=== PATIENT | male | born 1940 | race Two or more races ===

== ENCOUNTER 2017-07-13 09:14 | Inpatient (IN) | payer MEDICARE, MEDICAID ==
[~2017-07-13] VITALS: Ht 170.2 cm; Wt 81.6 kg
[~2017-07-13 09:14] MED LIST: ACETAMINOPHEN120 MG ORAL; ALBUTEROL2.5 MG/3 M INH; ATIVAN0.5 MG ORAL; BENADRYL25 M3 PO; D5NS; DEPAKOTE ER500 MG ORAL; FOLIC ACID1 MG ORAL; LACTULOSE20 GM/301 ORAL; MAG-OX 400400 MG ORAL; MORPHINE SU4 MG/1 ML IV; MYLANTA30 M1 PO; NAMENDA5 MG ORAL; NEOMYCIN SULFA500 MG ORAL; NEPHRO-VITE RX1 EAC1 PO; NITROGLYCERIN0.4 MG SL; POLYETHYLENE GL17 GM ORAL; RESTORIL15 MG ORAL; TUMS200 M1 PO; TYLENOL650 MG/20. ORAL; VITAMIN D1000 UNI1 ORAL; VITAMIN D1000 UNI2 PO; XALATAN2.5 ML BOTH EYES; XIFAXAN550 MG ORAL; ZOFRAN4 M1 IV
[2017-07-13 09:21] VITALS: BP 103/64
[2017-07-13] MEDS ORDERED: MULTI VITAMIN1 EACH ORAL (09:25)
[2017-07-13] MEDS ORDERED: VITAMIN D-32000 UNI1 PO (09:25)
[2017-07-13] MEDS ORDERED: MAG-OXIDE400 M1 PO (09:25)
[2017-07-13] MEDS ORDERED: XIFAXAN550 MG ORAL (09:25)
--- NOTE | 2017-07-13 09:27 | Emergency Room Report ---
History of Present Illness General Chief Complaint: Upper Respiratory Illness Source: Patient, Medical Record, EMS Present Illness HPI 77-year-old male coming from [facility], history of COPD, hepatitis C, cirrhosis, CAD, hypertension, seizure, encephalopathy, dementia, unknown baseline mental status, presenting with cough and fever for 2 days. Also shortness of breath. Patient is very poor historian, not able to give much history Allergies: Coded Allergies: No Known Allergies (Unverified , 07/19/16) Patient History Past Medical History: see triage record Past Surgical History: unable to obtain Pertinent Family History: unable to obtain Reviewed Nursing Documentation: PMH: Agreed, PSxH: Agreed Nursing Documentation-PMH Hx Cardiac Problems: Yes Hx Hypertension: Yes Hx Pacemaker: No - ANEMIA Hx COPD: Yes Hx Cancer: No Hx Gastrointestinal Problems: Yes Hx Dialysis: No - advanced liver disease,encephalopathy pepic ulcer disease Hx Neurological Problems: Yes Hx Encephalitis: Yes - encephalopathy Hx Seizures: Yes Review of Systems All Other Systems: negative except mentioned in HPI Physical Exam Vital Signs Date Time Temp Pulse Resp B/P (MAP) Pulse Ox O2 Delivery O2 Flow Rate FiO2 07/13/17 09:14 98.2 94 20 117/75 98 Nasal Cannula 2.0 Medical Decision Making Diagnostic Impression: Primary Impression: HCAP (healthcare-associated pneumonia) Additional Impression: Hypokalemia ER Course 77-year-old male coming from prison with pmhx of COPD, CAD, cirrhosis, hypertension p/w SOB and cough for 2 days. DDX: pneumonia versus COPD exacerbation, ACS Plan: IV access, cardiac catheterization technologist, O2 nasal cannula, EKG, CXR obtain basic labs including blood gas, troponin ER course: Labs: leukocytosis Satting 94-100 on RA Continues to be in mild/moderate respiratory distress. IV fluids given to patient, antibiotics administered Disposition: Patient is to be admitted to med-surg unit. Patient requires inpatient admission for pneumonia Utilizing CURB65 clinical criteria, patient has increased mortality from pneumonia requiring hospitalization. Patient requires close monitoring of respiratory status and antibiotics D/w hospitalist Dr Coburn who has accepted pt for admission EKG Diagnostic Results EP Interpretation: Yes Rate: normal Rhythm: NSR ST Segments: RBBB ASA given to patient: No Rhythm Strip EP Interpretation: Yes Rate: 93 Rhythm: NSR, no PVCs, no ectopy Chest X-ray CXR: Ordered: Yes 1 view Indication: SOB EP interpretation: Yes Interpretation: +Infiltrate RML, possible LLL cannot clearly eval LL base Impression:R sided pneumonia Electronically signed by Ivonne Hernandez MD Laboratory Tests Test 07/13/17 11:05 07/13/17 11:54 White Blood Count 11.0 K/UL (4.8-10.8) H Red Blood Count 3.27 M/UL (4.70-6.10) L Hemoglobin 10.7 G/DL (14.2-18.0) L Hematocrit 31.6 % (42.0-52.0) L Mean Corpuscular Volume 97 FL (80-99) Mean Corpuscular Hemoglobin 32.7 PG (27.0-31.0) H Mean Corpuscular Hemoglobin Concent 33.8 G/DL (32.0-36.0) Red Cell Distribution Width 15.0 % (11.6-14.8) H Platelet Count 207 K/UL (150-450) Mean Platelet Volume 8.7 FL (6.5-10.1) Neutrophils (%) (Auto) 60.5 % (45.0-75.0) Lymphocytes (%) (Auto) 23.4 % (20.0-45.0) Monocytes (%) (Auto) 14.9 % (1.0-10.0) H Eosinophils (%) (Auto) 0.0 % (0.0-3.0) Basophils (%) (Auto) 1.1 % (0.0-2.0) Sodium Level 130 MMOL/L (136-145) L Potassium Level 3.1 MMOL/L (3.5-5.1) L Chloride Level 97 MMOL/L (98-107) L Carbon Dioxide Level 27 MMOL/L (21-32) Anion Gap 6 (5-15) Blood Urea Nitrogen 22 mg/dL (7-18) H Creatinine 0.8 MG/DL (0.55-1.30) Estimate Glomerular Filtration Rate mL/min (>60) Glucose Level 91 MG/DL (74-106) Lactic Acid Level 1.90 mmol/L (0.66-2.22) Calcium Level 8.6 MG/DL (8.5-10.1) Total Bilirubin 0.4 MG/DL (0.2-1.0) Aspartate Amino Transferase (AST) 20 U/L (15-37) Alanine Aminotransferase (ALT) 6 U/L (12-78) L Alkaline Phosphatase 52 U/L (46-116) Total Creatine Kinase 193 U/L (26-308) Creatine Kinase MB 5.6 NG/ML (0.0-3.6) H Creatine Kinase MB Relative Index 2.9 Troponin I 0.000 ng/mL (0.000-0.056) Total Protein 6.6 G/DL (6.4-8.2) Albumin 2.0 G/DL (3.4-5.0) L Globulin 4.6 g/dL Albumin/Globulin Ratio 0.4 (1.0-2.7) L Last Vital Signs Date Time Temp Pulse Resp B/P (MAP) Pulse Ox O2 Delivery O2 Flow Rate FiO2 07/13/17 09:14 98.2 94 20 117/75 98 Nasal Cannula 2.0 Disposition: ADMITTED INPATIENT Condition: Serious RetinoIvonne M.D. Jul 13, 2017 09:27
[2017-07-13 10:30] VITALS: BP 114/60
[2017-07-13] MEDS ORDERED: Miralax 17gm pkt ORAL PRN ×2 (11:15)
[2017-07-13] MEDS ORDERED: Albuterol/Ipratropium 3ml neb HHN PRN (11:15)
[2017-07-13] MEDS ORDERED: Morphine Sulfate 4mg/ml Inj IVP PRN (11:15)
[2017-07-13 11:24] LABS: BASOPHILS % (AUTO) 1.1 % (0.0-2.0); LYMPHOCYTES % (AUTO) 23.4 % (20.0-45.0); MEAN CORPUSCULAR HEMOGLOBIN 32.7 PG (27.0-31.0); MEAN CORPUSCULAR HGB CONC 33.8 G/DL (32.0-36.0); MEAN CORPUSCULAR VOLUME 97 FL (80-99); MEAN PLATELET VOLUME 8.7 FL (6.5-10.1); MONOCYTES % (AUTO) 14.9 % (1.0-10.0); NEUTROPHILS % (AUTO) 60.5 % (45.0-75.0); PLATELET COUNT 207 K/UL (150-450); RED BLOOD COUNT 3.27 M/UL (4.70-6.10)
[2017-07-13 11:30] VITALS: BP 110/62
[2017-07-13] MEDS ORDERED: Cefepime 1gm vial IM ONE (11:30)
--- NOTE | 2017-07-13 11:43 | Diagnostic Imaging Report ---
Indication: Dyspnea Comparison: None A single view chest radiograph was obtained. Findings: Interstitial opacities noted throughout the lungs bilaterally but predominating at the lung bases probably largely accounted for by atelectasis given low lung volumes. Heart size is normal. Aorta is ectatic. Bones are osteopenic. Impression: Basilar atelectasis suspected.
[2017-07-13] MEDS ORDERED: Cefepime HCl 1 GM in NS 55 ML IVPB ONE (12:05)
[2017-07-13] MEDS: Vancomycin 1.5gm/D5W 250ml 250 ML IVPB ONE ×2 (12:09→12:54)
[2017-07-13 12:30] VITALS: BP 112/65
--- NOTE | 2017-07-13 12:33 | Infectious Diseases Prog Note ---
Assessment/Plan Problems: (1) HCAP (healthcare-associated pneumonia) Assessment & Plan: will send sputum culture, and screening for influenza , continue vancomycin and cefepime (2) Sepsis Assessment & Plan: due to the above, continue wide spectrum antibiotics pending blood culture (3) Cirrhosis Assessment & Plan: supportive care , GI consult Subjective Allergies: Coded Allergies: No Known Allergies (Unverified , 07/19/16) Objective Vital Signs Last 24 Hour Vital Signs Date Time Temp Pulse Resp B/P (MAP) Pulse Ox O2 Delivery O2 Flow Rate FiO2 07/13/17 09:21 100.0 87 15 103/64 94 Room Air 07/13/17 09:20 87 15 07/13/17 09:14 98.2 94 20 117/75 98 Nasal Cannula 2.0 Height (Feet): 5 Height (Inches): 7.00 Weight (Pounds): 180 Laboratory Tests Test 07/13/17 11:05 07/13/17 11:54 White Blood Count 11.0 K/UL (4.8-10.8) H Red Blood Count 3.27 M/UL (4.70-6.10) L Hemoglobin 10.7 G/DL (14.2-18.0) L Hematocrit 31.6 % (42.0-52.0) L Mean Corpuscular Volume 97 FL (80-99) Mean Corpuscular Hemoglobin 32.7 PG (27.0-31.0) H Mean Corpuscular Hemoglobin Concent 33.8 G/DL (32.0-36.0) Red Cell Distribution Width 15.0 % (11.6-14.8) H Platelet Count 207 K/UL (150-450) Mean Platelet Volume 8.7 FL (6.5-10.1) Neutrophils (%) (Auto) 60.5 % (45.0-75.0) Lymphocytes (%) (Auto) 23.4 % (20.0-45.0) Monocytes (%) (Auto) 14.9 % (1.0-10.0) H Eosinophils (%) (Auto) 0.0 % (0.0-3.0) Basophils (%) (Auto) 1.1 % (0.0-2.0) Sodium Level Pending Potassium Level Pending Chloride Level Pending Carbon Dioxide Level Pending Blood Urea Nitrogen Pending Creatinine Pending Estimat Glomerular Filtration Rate Pending Glucose Level Pending Lactic Acid Level Pending Calcium Level Pending Total Bilirubin Pending Aspartate Amino Transf (AST/SGOT) Pending Alanine Aminotransferase (ALT/SGPT) Pending Alkaline Phosphatase Pending Total Creatine Kinase Pending Creatine Kinase MB Pending Troponin I Pending Total Protein Pending Albumin Pending Globulin Pending Current Medications Medications (Trade) Dose Ordered Sig/Zuhair Route PRN Reason Start Time Stop Time Status Last Admin Dose Admin Acetaminophen (Tylenol) 650 mg Q4H PRN ORAL T>100.5 F 07/13/17 11:15 08/12/17 11:14 Albuterol/ Ipratropium (DuoNeb 0.5-3(2.5)mg/3ml) 3 ml Q4H PRN HHN Shortness of Breath 07/13/17 11:15 07/18/17 11:14 Cefepime HCl 1 gm/ Sodium Chloride 55 ml @ 110 mls/hr ONCE ONCE IVPB 07/13/17 12:05 07/13/17 12:34 07/13/17 12:12 Cefepime HCl 2 gm/ Dextrose 110 ml @ 220 mls/hr EVERY 12 HOURS IV 07/13/17 21:00 07/20/17 20:59 UNV Dextrose (Dextrose 50%) STAT PRN IV Hypoglycemia 07/13/17 11:15 08/12/17 11:14 Divalproex Sodium (Depakote ER) 500 mg TID ORAL 07/13/17 13:00 08/12/17 12:59 UNV Heparin Sodium (Porcine) (Heparin 5000 units/ml) 5,000 units EVERY 12 HOURS SUBQ 07/13/17 21:00 08/12/17 20:59 Memantine (Namenda) 5 mg TWICE A DAY ORAL 07/13/17 18:00 08/12/17 17:59 Morphine Sulfate (Morphine Sulfate) 2 mg Q4H PRN IVP Severe Pain (Pain Scale 7-10) 07/13/17 11:15 07/20/17 11:14 Ondansetron HCl (Zofran) 4 mg Q6H PRN IVP Nausea & Vomiting 07/13/17 11:15 08/12/17 11:14 Polyethylene Glycol (Miralax) 17 gm DAILYPRN PRN ORAL Constipation 07/13/17 11:15 08/12/17 11:14 Rifaximin (Xifaxan) 550 mg Q12HR ORAL 07/13/17 21:00 07/20/17 20:59 Sodium Chloride 2,400 ml @ 2,400 mls/hr Q1H ONCE IVLG 07/13/17 11:30 07/13/17 12:29 07/13/17 12:11 Vancomycin HCl (Vanco rx to dose) 1 ea DAILY PRN MISC PER RX PROTOCOL 07/13/17 12:00 08/12/17 11:59 Vancomycin HCl 1 gm/Dextrose 275 ml @ 183.3 mls/ hr Q24H IV 07/13/17 23:00 07/18/17 22:59 UNV Vancomycin HCl/ Dextrose 250 ml @ 125 mls/hr ONCE ONCE IVPB 07/13/17 11:30 07/13/17 13:29 Christina Combs M.D. Jul 13, 2017 12:33
[2017-07-13 14:06] LABS: ALANINE AMINOTRANSFERASE 6 U/L (12-78); ALBUMIN/GLOBULIN RATIO 0.4 (1.0-2.7); ANION GAP 6 (5-15); ASPARTATE AMINO TRANSFERASE 20 U/L (15-37); CALCIUM 8.6 MG/DL (8.5-10.1); CARBON DIOXIDE 27 MMOL/L (21-32); CHLORIDE 97 MMOL/L (98-107); CKMB 5.6 NG/ML (0.0-3.6); CREATININE 0.8 MG/DL (0.55-1.30); POTASSIUM 3.1 MMOL/L (3.5-5.1); SODIUM 130 MMOL/L (136-145); TOTAL PROTEIN 6.6 G/DL (6.4-8.2)
[2017-07-13] MEDS ORDERED: VITAMIN D400 INTLU ORAL (16:08)
[2017-07-13] MEDS: Depakote 500mg tab ORAL SCH ×2 (16:37→18:42)
[2017-07-13] MEDS ORDERED: Memantine 5 MG TAB ORAL SCH (18:00)
--- NOTE | 2017-07-13 18:10 | Neurology Progress Note ---
Objective Physical Exam Last Vital Signs Date Time Temp Pulse Resp B/P (MAP) Pulse Ox O2 Delivery O2 Flow Rate FiO2 07/13/17 14:55 82 14 118/66 99 Room Air 07/13/17 12:30 99.9 2.0 Laboratory Tests Test 07/13/17 11:05 07/13/17 11:54 White Blood Count 11.0 K/UL (4.8-10.8) H Red Blood Count 3.27 M/UL (4.70-6.10) L Hemoglobin 10.7 G/DL (14.2-18.0) L Hematocrit 31.6 % (42.0-52.0) L Mean Corpuscular Volume 97 FL (80-99) Mean Corpuscular Hemoglobin 32.7 PG (27.0-31.0) H Mean Corpuscular Hemoglobin Concent 33.8 G/DL (32.0-36.0) Red Cell Distribution Width 15.0 % (11.6-14.8) H Platelet Count 207 K/UL (150-450) Mean Platelet Volume 8.7 FL (6.5-10.1) Neutrophils (%) (Auto) 60.5 % (45.0-75.0) Lymphocytes (%) (Auto) 23.4 % (20.0-45.0) Monocytes (%) (Auto) 14.9 % (1.0-10.0) H Eosinophils (%) (Auto) 0.0 % (0.0-3.0) Basophils (%) (Auto) 1.1 % (0.0-2.0) Sodium Level 130 MMOL/L (136-145) L Potassium Level 3.1 MMOL/L (3.5-5.1) L Chloride Level 97 MMOL/L (98-107) L Carbon Dioxide Level 27 MMOL/L (21-32) Anion Gap 6 (5-15) Blood Urea Nitrogen 22 mg/dL (7-18) H Creatinine 0.8 MG/DL (0.55-1.30) Estimat Glomerular Filtration Rate mL/min (>60) Glucose Level 91 MG/DL (74-106) Lactic Acid Level 1.90 mmol/L (0.66-2.22) Calcium Level 8.6 MG/DL (8.5-10.1) Total Bilirubin 0.4 MG/DL (0.2-1.0) Aspartate Amino Transf (AST/SGOT) 20 U/L (15-37) Alanine Aminotransferase (ALT/SGPT) 6 U/L (12-78) L Alkaline Phosphatase 52 U/L (46-116) Total Creatine Kinase 193 U/L (26-308) Creatine Kinase MB 5.6 NG/ML (0.0-3.6) H Creatine Kinase MB Relative Index 2.9 Troponin I 0.000 ng/mL (0.000-0.056) Total Protein 6.6 G/DL (6.4-8.2) Albumin 2.0 G/DL (3.4-5.0) L Globulin 4.6 g/dL Albumin/Globulin Ratio 0.4 (1.0-2.7) L Impression/Recommendations Problems: (1) s/o byfrontal encephalomalatia/ craniotomy (2) r/o seizure disorder (3) HCAP (healthcare-associated pneumonia) (4) Hypokalemia (5) Cirrhosis (6) GERD (gastroesophageal reflux disease) Status: unchanged Recommendations # [id number] ANGELLA GUERRA Jul 13, 2017 18:10
[2017-07-13 18:39] LABS: VALPROIC ACID 87 MCG/ML (50-100)
[2017-07-13] MEDS: D5 1/2NS 1,000 ML IV SCH (20:35)
[2017-07-13] MEDS: Piperacillin/Tazobactam 3.375 GM in D5W 110 ML IVPB SCH (20:56)
[2017-07-13 21:00] VITALS: BP 101/54
[2017-07-13] MEDS ORDERED: Cefepime HCl 2 GM in D5W 110 ML IV SCH (21:00)
[2017-07-13] MEDS: Heparin 5000 units/ml inj SUBQ SCH (21:54)
[2017-07-13] MEDS ORDERED: Vancomycin 1 GM in D5W 275 ML IV SCH (23:00)
--- NOTE | 2017-07-13 23:45 | History and Physical Report ---
DATE OF ADMISSION: 07/13/2017 TIME SEEN: 1 p.m. CONSULTANTS: 1. Chi Gibson M.D. 2. Dr. Suárez. 3. Lashanda Burris M.D. 4. Kain Haq M.D. CHIEF COMPLAINT: Shortness of breath, pneumonia, and sepsis. BRIEF HISTORY: This is a 77-year-old male from [facility], presented with increased shortness of breath and lethargy, was found to have pneumonia and sepsis, sent to [facility], confirmed the above, and he was admitted to medical floor for further treatment. Currently, calm, lethargic in bed, sleepy, and nonverbal. PAST MEDICAL HISTORY: Hepatic encephalopathy, anemia, seizure, cirrhosis, and GERD. PAST SURGICAL HISTORY: Craniotomy. MEDICATIONS: Vancomycin, rifaximin, heparin, cefepime, Namenda, Depakote, vancomycin, Zofran, and MiraLAX. ALLERGIES: Denied. SOCIAL HISTORY: Unable to obtain secondary to the patient's condition. REVIEW OF SYSTEMS: Unavailable. PHYSICAL EXAMINATION: GENERAL: Lethargic in bed and nonverbal. VITAL SIGNS: Temperature is 99 degrees, pulse 80, respirations 14, and blood pressure 112/65. CARDIOVASCULAR: No murmur. LUNGS: Poor air exchange. ABDOMEN: Bowel sounds are positive. Nontender and nondistended. EXTREMITIES: No cyanosis, clubbing, or edema. NEUROLOGIC: The patient moves all extremities. Slightly weak. LABORATORY DATA: White count is 11, hemoglobin and hematocrit 10.7 and 31, and platelets 207,000. BMP is pending. ASSESSMENT: 1. Shortness of breath. 2. Pneumonia. 3. Sepsis. 4. Anemia. 5. Hepatic encephalopathy. 6. Seizures. 7. Gastroesophageal reflux disease. 8. Cirrhosis. PLAN: 1. Continue previous medications. 2. O2 and pulmonary treatment. 3. Antibiotics per Infectious Disease. 4. OT, PT, and dietary evaluation. 5. CBC and BMP in the morning. 6. Resume home medications. 7. Dr. Gibson, Dr. Suárez, Dr. Burris, and Dr. Haq to consult. Farrukh Coburn D.O. DR: ADDISON JOB#: [id number] CC:
[2017-07-14] VITALS: BP 98/40
--- NOTE | 2017-07-14 | Consultation ---
DATE OF CONSULTATION: 07/13/2017 NOTE: INCOMPLETE DICTATION INFECTIOUS DISEASES CONSULTATION CONSULTING PHYSICIAN: Christina Combs M.D. REQUESTING PHYSICIAN: Farrukh Coburn D.O. REASON FOR CONSULTATION: Healthcare-acquired pneumonia, sepsis, and fever, recommendation for antibiotics therapy in a cirrhotic patient. HISTORY OF PRESENT ILLNESS: The patient is a 77-year-old male with past medical history of advanced liver cirrhosis disease, encephalopathy, and peptic ulcer, was sent from [facility] with DICTATION ABRUPTLY ENDED Christina Combs M.D. DR: SARAH JOB#: [id number] CC:
--- NOTE | 2017-07-14 00:15 | Consultation ---
DATE OF CONSULTATION: 07/13/2017 INFECTIOUS DISEASES CONSULTATION REQUESTING PHYSICIAN: Farrukh Coburn D.O. REASON FOR CONSULTATION: Healthcare-acquired pneumonia, sepsis, and fever in cirrhotic patient. Recommendation for antibiotics therapy. HISTORY OF PRESENT ILLNESS: The patient is a 77-year-old male with past medical history of advanced liver disease with cirrhosis, encephalopathy, and COPD, was sent from shelter facility with cough, fever, and shortness of breath. His symptom has been going on for two days. The patient was found to have fever in the emergency room and he was saturating 98% on nasal cannula. Chest x-ray in the emergency room showed bilateral basilar infiltration suspicious for pneumonia and he was started on IV antibiotics therapy empirically and I was consulted by the primary provider for antibiotics treatment and further management. As of note, this patient is poor historian with dementia cannot provide any history. History was mainly obtained from the medical record. PAST MEDICAL HISTORY: Significant for cardiac disease, hypertension, anemia, COPD, liver cirrhosis, encephalopathy, peptic ulcer disease, and seizure. PAST SURGICAL HISTORY: Unable to obtain. MEDICATIONS: The patient was started on cefepime and vancomycin by the admitting physician. For the rest of his medications, please refer to MAR. ALLERGIES: No known drug allergies. FAMILY HISTORY: Unable to obtain. SOCIAL HISTORY: He is a shelter resident. No recent drugs, tobacco, or alcohol. PHYSICAL EXAMINATION: VITAL SIGNS: Temperature 98.2, pulse 94, respirations 20, blood pressure 117/75, and saturation 98% on 2 liter nasal cannula. GENERAL: The patient is an elderly male, demented, lying in bed, alert, nonverbal, and not in distress. HEENT: Normocephalic and atraumatic. Pupils are reactive to light. Moist oral mucosa. No exudate. NECK: Supple. No lymphadenopathy. CARDIOVASCULAR: Regular rate and rhythm. No murmur. LUNGS: Diminished breathing sounds at the bases with crackles. ABDOMEN: Soft, nontender, and nondistended. Positive bowel sounds. No hepatosplenomegaly or ascites. EXTREMITIES: No edema or cyanosis. LABORATORY AND DIAGNOSTIC DATA: Labs showed white count of 11,000, hemoglobin of 10.7, and platelet count of 207,000. BUN of 6. Imaging, chest x- ray showed basilar atelectasis suspected. ASSESSMENT AND RECOMMENDATIONS: 1. Healthcare-acquired pneumonia. We will send sputum culture and screen for influenza. Continue vancomycin and switch cefepime to Zosyn. Empiric treatment to broaden his coverage since he is still spiking fever. 2. Sepsis due to the above. Continue wide-spectrum antibiotics. Pending blood culture. 3. Liver cirrhosis, chronic. Continue supportive care. Consult Gastrointestinal. 4. Chronic obstructive pulmonary disease. Continue inhaler and oxygen therapy as per drug safety associate. Thank you for the consult. Christina Combs M.D. DR: SARAH JOB#: [id number] CC: MYA
--- NOTE | 2017-07-14 00:30 | Consultation ---
DATE OF CONSULTATION: 07/13/2017 NEUROLOGICAL CONSULTATION CONSULTING PHYSICIAN: Kain Haq M.D. REQUESTING PHYSICIAN: Farrukh Coburn D.O. HISTORY OF PRESENT ILLNESS: This 77-year-old man seen in neurological consultation to evaluate the new onset of verbal unresponsiveness. The patient who is a resident of nursing facility presented with fever and cough for the last couple of days. He developed shortness of breath. The patient was unable to provide with history as he was nonverbal. The patient is known to me from previous assessment last year when he was examined revealing a limited verbal output in Belgian only. He was able to move arms and legs. He had a CT scan of the brain, which revealed a craniotomy with bifrontal extensive encephalomalacia. The patient is maintained on Depakote presumably for chronic seizure disorder. Following current admission, lab work was obtained. This revealed WBC of 11.0, anemia with hemoglobin 10.7, and hematocrit 31.6. Chemistry panel with sodium of 130, potassium 3.1, BUN of 22. CK-MB 5.6. Chest x-ray revealed bibasilar atelectasis. Infectious Disease assessment was noted. The patient was diagnosed with healthcare-associated pneumonia. His sputum culture screening for influenza was initiated. The patient was maintained on vancomycin and cefepime. The patient's vital signs were stable with fevers 100.0. He had blood pressure 119/66 and pulse oximetry 94%. PAST MEDICAL HISTORY: The patient has a history of severe head trauma, required craniotomy; history of liver cirrhosis, advanced, with evidence of encephalopathy. He has a history of peptic ulcer. He is wheelchair bound. Chronic seizure disorder diagnosed as well as dementia, gait abnormality, and history of COPD. CURRENT MEDICATIONS: His treatment prior to admission included Depakote 500 mg b.i.d., albuterol, vitamin D, Benadryl, lactulose, Ativan 0.5 mg p.r.n., magnesium oxide, Namenda, morphine, nitroglycerin, ondansetron, and Restoril. ALLERGIES: None reported. SOCIAL HISTORY: A resident of nursing facility. FAMILY HISTORY: Unavailable. REVIEW OF SYMPTOMS: Unable to obtain due to the patient's status. PHYSICAL EXAMINATION: GENERAL: A well-developed, well-nourished male, lying in bed, appears to be asleep. HEENT: Head, normocephalic with a large craniotomy defect in the mid frontal region. No otorrhea. No rhinorrhea. NECK: Supple. No meningeal signs. MUSCULOSKELETAL: Unremarkable for puffiness, both ankles. No deformities. Peripheral pulses 1+ symmetric. NEUROLOGIC: MENTAL STATUS: The patient is arousable on vigorous stimulation. He has brief eye contact. He does not follow commands given in Belgian. CRANIAL NERVE II: Pupils both responding to light and accommodation. Extraocular movement full range. CRANIAL NERVE V: Normal corneal responses. CRANIAL NERVE VII: No gross asymmetry. CRANIAL NERVE VIII: Probably decreased hearing. CRANIAL NERVES IX THROUGH XII: Tongue is in midline. MOTOR EXAMINATION: Diffuse rigidity in both upper and lower extremities, mostly pronounced in both lower extremities. Able to briefly hold arms against the gravity, but not lower extremities, which appears to be spastic and with no spontaneous activity. Deep tendon reflexes are depressed bilaterally. Plantar response is question Babinski bilaterally. SENSORY EXAMINATION: No response to pin stimulation in both upper and lower extremities. IMPRESSION: 1. 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 2. Pneumonia. 3. Verbal unresponsiveness, resulted from multiple reasons including underlying infection and metabolic derangement in the setting of severe traumatic brain injury. 4. Chronic obstructive pulmonary disease. 5. Chronic anemia. 6. Hyponatremia. 7. Hypokalemia. RECOMMENDATION: 1. Obtain Depakote level. 2. Recheck liver function tests. If abnormal, we will consider changing Depakote for other anticonvulsants due to fact that Depakote may elevate liver enzymes. 3. Observe for any paroxysmal events. 4. Continue with IV fluids and antibiotics to cover underlying infection and metabolic correction. Thank you for allowing me to see this interesting patient in neurological consultation. Kain Haq M.D. DR: NESTOR JOB#: [id number] CC:
[2017-07-14 04:00] VITALS: BP 116/68
[2017-07-14] MEDS: Piperacillin/Tazobactam 3.375 GM in D5W 110 ML IVPB SCH ×3 (05:05→21:51)
[2017-07-14 09:15] VITALS: BP 121/78
--- NOTE | 2017-07-14 10:30 | General Progress Note ---
Assessment/Plan Problem List: (1) Hepatic encephalopathy ICD Codes: K72.90 - Hepatic failure, unspecified without coma SNOMED: 97349064 (2) Anemia ICD Codes: D64.9 - Anemia, unspecified SNOMED: 417214834 (3) s/p craniotomy (4) Cirrhosis ICD Codes: K74.60 - Unspecified cirrhosis of liver SNOMED: 95450812 (5) Sepsis ICD Codes: A41.9 - Sepsis, unspecified organism SNOMED: 40353936 (6) GERD (gastroesophageal reflux disease) ICD Codes: K21.9 - Gastro-esophageal reflux disease without esophagitis SNOMED: 520223871 (7) r/o seizure disorder (8) s/o byfrontal encephalomalatia/ craniotomy (9) Hypokalemia ICD Codes: E87.6 - Hypokalemia SNOMED: 11196026 (10) HCAP (healthcare-associated pneumonia) ICD Codes: J18.9 - Pneumonia, unspecified organism SNOMED: 775247117 Status: stable, progressing, tolerating diet Assessment/Plan o2 pulm tx abx ot pt diet cbc bmp am neph eval Subjective Constitutional: Reports: weakness Respiratory: Reports: shortness of breath Allergies: Coded Allergies: No Known Allergies (Unverified , 07/19/16) All Systems: reviewed and negative except above Subjective calm in bed Objective Last 24 Hour Vital Signs Date Time Temp Pulse Resp B/P (MAP) Pulse Ox O2 Delivery O2 Flow Rate FiO2 07/14/17 09:15 97.6 56 21 121/78 96 Room Air 07/14/17 09:01 85 16 07/14/17 04:00 97.9 60 21 116/68 98 Room Air 07/14/17 00:00 97.2 64 20 98/40 100 Room Air 07/13/17 21:00 97.3 71 18 101/54 95 Room Air 71 71 07/13/17 14:55 82 14 118/66 99 Room Air 07/13/17 12:30 99.9 80 14 112/65 99 Room Air 2.0 07/13/17 11:30 99.9 88 15 110/62 97 Room Air 2.0 07/13/17 10:30 99.8 84 16 114/60 97 Room Air 2.0 Laboratory Tests 07/13/17 11:05: White Blood Count 11.0H, Red Blood Count 3.27L, Hemoglobin 10.7L, Hematocrit 31.6L, Mean Corpuscular Volume 97, Mean Corpuscular Hemoglobin 32.7H, Mean Corpuscular Hemoglobin Concent 33.8, Red Cell Distribution Width 15.0H, Platelet Count 207, Mean Platelet Volume 8.7, Neutrophils (%) (Auto) 60.5, Lymphocytes (%) (Auto) 23.4, Monocytes (%) (Auto) 14.9H, Eosinophils (%) (Auto) 0.0, Basophils (%) (Auto) 1.1 07/13/17 11:54: Sodium Level 130L, Potassium Level 3.1L, Chloride Level 97L, Carbon Dioxide Level 27, Anion Gap 6, Blood Urea Nitrogen 22H, Creatinine 0.8, Estimat Glomerular Filtration Rate , Glucose Level 91, Lactic Acid Level 1.90, Calcium Level 8.6, Total Bilirubin 0.4, Aspartate Amino Transf (AST/SGOT) 20, Alanine Aminotransferase (ALT/SGPT) 6L, Alkaline Phosphatase 52, Total Creatine Kinase 193, Creatine Kinase MB 5.6H, Creatine Kinase MB Relative Index 2.9, Troponin I 0.000, Total Protein 6.6, Albumin 2.0L, Globulin 4.6, Albumin/Globulin Ratio 0.4L, Vitamin B12 Level 852, Valproic Acid (Depakene) Level 87 Height (Feet): 5 Height (Inches): 7.00 Weight (Pounds): 180 General Appearance: lethargic EENT: normal ENT inspection Neck: normal alignment Cardiovascular: normal peripheral pulses, normal rate, regular rhythm Respiratory/Chest: chest wall non-tender, lungs clear, normal breath sounds Abdomen: normal bowel sounds, non tender, soft Extremities: normal inspection Edema: no edema noted Arm (L), no edema noted Arm (R), no edema noted Leg (L), no edema noted Leg (R), no edema noted Pedal (L), no edema noted Pedal (R), no edema noted Generalized Neurologic: motor weakness Skin: normal pigmentation, warm/dry CARLENE CASTRO Jul 14, 2017 10:30
--- NOTE | 2017-07-14 10:43 | Consultation ---
History of Present Illness General Date patient seen: Jul 14, 2017 Time patient seen: 10:00 Chief Complaint: Upper Respiratory Illness Referring physician: dr Coburn Reason for Consultation: pulmo consult Present Illness HPI 77-y/old male coming from [facility] of COPD, hepatitis C, cirrhosis, CAD, seizure disorder, encephalopathy, dementia, history of severe head trauma, requiring craniotomy, was sent for evaluation due to cough, SOB and fever for 2 days. patient was unable to provide meaningful history workup in ed revealed WBC-11 CXR with infiltrates on o2 via NC sat stable anemia -HH-10.7/31.6 K-3.1 Na-130 Depakote level therapeutic patient was admitted for further management Allergies: Coded Allergies: No Known Allergies (Unverified , 07/19/16) Medication History Scheduled Cholecalciferol (Vitamin D3) (Vitamin D), 1,000 UNIT PO DAILY, (Reported) Divalproex Sodium* (Depakote Er*), 500 MG ORAL TID, (Reported) Folic Acid* (Folic Acid*), 1 MG ORAL DAILY, (Reported) Lactulose (Lactulose*), 60 ML ORAL THREE TIMES A DAY, (Reported) Latanoprost* (Xalatan*), 1 DROP BOTH EYES BEDTIME, (Reported) Magnesium Oxide (Magnesium Oxide), 400 MG ORAL DAILY, (Reported) Magnesium Oxide (Mag-Oxide), 400 MG PO DAILY, (Reported) Memantine Hcl* (Namenda*), 5 MG ORAL TWICE A DAY, (Reported) Multivitamin (Multi Vitamin Daily), 1 TAB ORAL DAILY, (Reported) Rifaximin* (Xifaxan*), 550 MG ORAL Q12HR, (Reported) Rifaximin* (Xifaxan*), 550 MG ORAL TWICE A DAY, (Reported) Vitamin D (Vitamin D3), 1,000 UNITS ORAL DAILY, (Reported) Scheduled PRN Acetaminophen (Acetaminophen), 650 MG ORAL Q6H PRN for Prn Headache/Temp > 101, (Reported) Al Hydroxide/mg Hydroxide (Mag-Al Liquid), 30 ML PO Q6HR PRN for dyspepsia, ( Reported) Albuterol Sulfate* (Albuterol Sulfate Hhn*), 3 ML INH Q4H PRN for Shortness of Breath, (Reported) Diphenhydramine HCl (Benadryl), 25 MG PO Q4HR PRN for Itching/Pruritis, ( Reported) Lorazepam* (Ativan*), 0.5 MG ORAL Q6HR PRN for For Anxiety, (Reported) Morphine Sulfate (Morphine Sulfate), 2 MG IV Q4HR PRN for For Pain, (Reported) Nitroglycerin (Nitroglycerin), 0.4 MG SL [id number] PRN for CHEST PAIN, ( Reported) Ondansetron (Zofran), 4 MG IV Q6H PRN for Nausea & Vomiting, (Reported) Polyethylene Glycol 3350* (Polyethylene Glycol 3350*), 17 GM ORAL BEDTIME PRN for Constipation, (Reported) Temazepam* (Restoril*), 15 MG ORAL BEDTIME PRN for Insomnia, (Reported) Miscellaneous Medications Cholecalciferol (Vitamin D3) (Vitamin D-3), 1,000 UNIT PO, (Reported) [D5ns], (Reported) Patient History Healthcare decision maker Resuscitation status Full Code Advanced Directive on File Past Medical/Surgical History Past Medical/Surgical History: (1) Hepatic encephalopathy (2) Anemia (3) s/p craniotomy (4) Cirrhosis Review of Systems ROS Narrative patient is unable to provide due to chronic encephalopathy Physical Exam General Appearance: alert Lines, tubes and drains: peripheral HEENT: other - evidence of right craniotomy Respiratory/Chest: chest wall non-tender, no accessory muscle use, other - few isolated rhonchi Cardiovascular/Chest: normal peripheral pulses, normal rate, regular rhythm, no JVD Extremities: other - paraparesis Musculoskeletal: atrophy - BLE Last 24 Hour Vital Signs Date Time Temp Pulse Resp B/P (MAP) Pulse Ox O2 Delivery O2 Flow Rate FiO2 07/14/17 09:15 97.6 56 21 121/78 96 Room Air 07/14/17 09:01 85 16 07/14/17 04:00 97.9 60 21 116/68 98 Room Air 07/14/17 00:00 97.2 64 20 98/40 100 Room Air 07/13/17 21:00 97.3 71 18 101/54 95 Room Air 71 71 07/13/17 14:55 82 14 118/66 99 Room Air 07/13/17 12:30 99.9 80 14 112/65 99 Room Air 2.0 07/13/17 11:30 99.9 88 15 110/62 97 Room Air 2.0 Laboratory Tests Test 07/13/17 11:05 07/13/17 11:54 White Blood Count 11.0 K/UL (4.8-10.8) H Red Blood Count 3.27 M/UL (4.70-6.10) L Hemoglobin 10.7 G/DL (14.2-18.0) L Hematocrit 31.6 % (42.0-52.0) L Mean Corpuscular Volume 97 FL (80-99) Mean Corpuscular Hemoglobin 32.7 PG (27.0-31.0) H Mean Corpuscular Hemoglobin Concent 33.8 G/DL (32.0-36.0) Red Cell Distribution Width 15.0 % (11.6-14.8) H Platelet Count 207 K/UL (150-450) Mean Platelet Volume 8.7 FL (6.5-10.1) Neutrophils (%) (Auto) 60.5 % (45.0-75.0) Lymphocytes (%) (Auto) 23.4 % (20.0-45.0) Monocytes (%) (Auto) 14.9 % (1.0-10.0) H Eosinophils (%) (Auto) 0.0 % (0.0-3.0) Basophils (%) (Auto) 1.1 % (0.0-2.0) Sodium Level 130 MMOL/L (136-145) L Potassium Level 3.1 MMOL/L (3.5-5.1) L Chloride Level 97 MMOL/L (98-107) L Carbon Dioxide Level 27 MMOL/L (21-32) Anion Gap 6 (5-15) Blood Urea Nitrogen 22 mg/dL (7-18) H Creatinine 0.8 MG/DL (0.55-1.30) Estimat Glomerular Filtration Rate mL/min (>60) Glucose Level 91 MG/DL (74-106) Lactic Acid Level 1.90 mmol/L (0.66-2.22) Calcium Level 8.6 MG/DL (8.5-10.1) Total Bilirubin 0.4 MG/DL (0.2-1.0) Aspartate Amino Transf (AST/SGOT) 20 U/L (15-37) Alanine Aminotransferase (ALT/SGPT) 6 U/L (12-78) L Alkaline Phosphatase 52 U/L (46-116) Total Creatine Kinase 193 U/L (26-308) Creatine Kinase MB 5.6 NG/ML (0.0-3.6) H Creatine Kinase MB Relative Index 2.9 Troponin I 0.000 ng/mL (0.000-0.056) Total Protein 6.6 G/DL (6.4-8.2) Albumin 2.0 G/DL (3.4-5.0) L Globulin 4.6 g/dL Albumin/Globulin Ratio 0.4 (1.0-2.7) L Vitamin B12 Level 852 PG/ML (193-986) Valproic Acid (Depakene) Level 87 MCG/ML (50-100) Microbiology Date/Time Source Procedure Growth Status 07/14/17 02:00 Nasal Not Otherwise Specified Influenza Types A,B Antigen (RADHA) - Final Complete Height (Feet): 5 Height (Inches): 7.00 Weight (Pounds): 180 Medications Current Medications Medications (Trade) Dose Ordered Sig/Zuhair Route PRN Reason Start Time Stop Time Status Last Admin Dose Admin Acetaminophen (Tylenol) 650 mg Q4H PRN ORAL T>100.5 F 07/13/17 11:15 08/12/17 11:14 Albuterol/ Ipratropium (DuoNeb 0.5-3(2.5)mg/3ml) 3 ml Q4H PRN HHN Shortness of Breath 07/13/17 11:15 07/18/17 11:14 Dextrose (Dextrose 50%) STAT PRN IV Hypoglycemia 07/13/17 11:15 08/12/17 11:14 Dextrose/Sodium Chloride 1,000 ml @ 60 mls/hr [id number] IV 07/13/17 20:00 08/12/17 19:59 07/13/17 20:35 Divalproex Sodium (Depakote) 500 mg TID ORAL 07/13/17 14:00 08/12/17 13:59 07/13/17 18:42 Heparin Sodium (Porcine) (Heparin 5000 units/ml) 5,000 units EVERY 12 HOURS SUBQ 07/13/17 21:00 08/12/17 20:59 07/13/17 21:54 Morphine Sulfate (Morphine Sulfate) 2 mg Q4H PRN IVP Severe Pain (Pain Scale 7-10) 07/13/17 11:15 07/20/17 11:14 Ondansetron HCl (Zofran) 4 mg Q6H PRN IVP Nausea & Vomiting 07/13/17 11:15 08/12/17 11:14 Piperacillin Sod/ Tazobactam Sod 3.375 gm/Dextrose 110 ml @ 27.5 mls/hr EVERY 8 HOURS IVPB 07/13/17 20:00 07/18/17 19:59 07/14/17 05:05 Polyethylene Glycol (Miralax) 17 gm DAILYPRN PRN ORAL Constipation 07/13/17 11:15 08/12/17 11:14 Rifaximin (Xifaxan) 550 mg Q12HR ORAL 07/13/17 21:00 07/20/17 20:59 07/13/17 21:51 Vancomycin HCl (Vanco rx to dose) 1 ea DAILY PRN MISC PER RX PROTOCOL 07/13/17 12:00 08/12/17 11:59 Vancomycin HCl/ Dextrose 250 ml @ 125 mls/hr Q24H IVPB 07/14/17 13:00 07/19/17 12:59 Assessment/Plan Assessment/Plan ASSESSMENT possible sepsis HCAP COPD history of severe head trauma required right craniotomy anemia seizure disorder e/lyte imbalance : hypo Na, hypo K chronic encephalopathy PLAN OF CARE MS floor O2 HHN prn fup with CXR empiric abx fup with cx ID follows seizure precautions continue Depakote neuro follows LFT stable gentle IVF monitor lytes check ammonia, continue Rifaximin for now monitor HH bowel regimen Namenda DVT prophayxlis case discussed and evaluated by supervising physician King ([facility])Rosa NP Jul 14, 2017 10:43
[2017-07-14] MEDS: Heparin 5000 units/ml inj SUBQ SCH ×2 (11:02→20:45)
[2017-07-14] MEDS: Depakote 500mg tab ORAL SCH ×3 (11:03→17:21)
[2017-07-14 12:15] VITALS: BP 127/77
[2017-07-14] MEDS: Vancomycin 1.5 GM/D5W 250ML IVPB SCH (13:11)
[2017-07-14] MEDS: D5 1/2NS 1,000 ML IV SCH (13:11)
--- NOTE | 2017-07-14 15:37 | Infectious Diseases Prog Note ---
Assessment/Plan Problems: (1) HCAP (healthcare-associated pneumonia) Assessment & Plan: await sputum culture, screening for influenza is negative , continue vancomycin and Zosyn empirically, fever resolved after switching to zosyn (2) Sepsis Assessment & Plan: due to the above, continue wide spectrum antibiotics pending blood culture (3) Cirrhosis Assessment & Plan: supportive care , GI consult Subjective ROS Limited/Unobtainable: Yes Allergies: Coded Allergies: No Known Allergies (Unverified , 07/19/16) Subjective he was sleeping but respond to verbal commands, denied any symptoms Objective Vital Signs Last 24 Hour Vital Signs Date Time Temp Pulse Resp B/P (MAP) Pulse Ox O2 Delivery O2 Flow Rate FiO2 07/14/17 12:15 97.5 68 21 127/77 97 Room Air 07/14/17 09:15 97.6 56 21 121/78 96 Room Air 07/14/17 09:01 85 16 07/14/17 04:00 97.9 60 21 116/68 98 Room Air 07/14/17 00:00 97.2 64 20 98/40 100 Room Air 07/13/17 21:00 97.3 71 18 101/54 95 Room Air 71 71 Height (Feet): 5 Height (Inches): 7.00 Weight (Pounds): 180 General Appearance: WD/WN, no acute distress HEENT: normocephalic, atraumatic, anicteric, mucous membranes moist Respiratory/Chest: chest wall non-tender, lungs clear, normal breath sounds, no respiratory distress, no accessory muscle use Cardiovascular: normal peripheral pulses, normal rate, regular rhythm, no gallop/murmur, no JVD Abdomen: normal bowel sounds, soft, non tender, no organomegaly, non distended , no mass, no scars Extremities: no cyanosis, no clubbing Skin: no rash, no lesions Neurologic/Psychiatric: alert, responsive Lymphatic: no neck adenopathy, no groin adenopathy Microbiology Date/Time Source Procedure Growth Status 07/14/17 02:00 Nasal Not Otherwise Specified Influenza Types A,B Antigen (RADHA) - Final Complete Current Medications Medications (Trade) Dose Ordered Sig/Zuhair Route PRN Reason Start Time Stop Time Status Last Admin Dose Admin Acetaminophen (Tylenol) 650 mg Q4H PRN ORAL T>100.5 F 07/13/17 11:15 08/12/17 11:14 Albuterol/ Ipratropium (DuoNeb 0.5-3(2.5)mg/3ml) 3 ml Q4H PRN HHN Shortness of Breath 07/13/17 11:15 07/18/17 11:14 Dextrose (Dextrose 50%) STAT PRN IV Hypoglycemia 07/13/17 11:15 08/12/17 11:14 Dextrose/Sodium Chloride 1,000 ml @ 60 mls/hr [id number] IV 07/13/17 20:00 08/12/17 19:59 07/14/17 13:11 Divalproex Sodium (Depakote) 500 mg TID ORAL 07/13/17 14:00 08/12/17 13:59 07/14/17 13:16 Heparin Sodium (Porcine) (Heparin 5000 units/ml) 5,000 units EVERY 12 HOURS SUBQ 07/13/17 21:00 08/12/17 20:59 07/14/17 11:02 Morphine Sulfate (Morphine Sulfate) 2 mg Q4H PRN IVP Severe Pain (Pain Scale 7-10) 07/13/17 11:15 07/20/17 11:14 Ondansetron HCl (Zofran) 4 mg Q6H PRN IVP Nausea & Vomiting 07/13/17 11:15 08/12/17 11:14 Piperacillin Sod/ Tazobactam Sod 3.375 gm/Dextrose 110 ml @ 27.5 mls/hr EVERY 8 HOURS IVPB 07/13/17 20:00 07/18/17 19:59 07/14/17 15:32 Polyethylene Glycol (Miralax) 17 gm DAILYPRN PRN ORAL Constipation 07/13/17 11:15 08/12/17 11:14 Rifaximin (Xifaxan) 550 mg Q12HR ORAL 07/13/17 21:00 07/20/17 20:59 07/14/17 11:03 Vancomycin HCl (Vanco rx to dose) 1 ea DAILY PRN MISC PER RX PROTOCOL 07/13/17 12:00 08/12/17 11:59 Vancomycin HCl/ Dextrose 250 ml @ 125 mls/hr Q24H IVPB 07/14/17 13:00 07/19/17 12:59 07/14/17 13:11 Christina Combs M.D. Jul 14, 2017 15:37
[2017-07-14 20:00] VITALS: BP 107/68
[2017-07-15] VITALS: BP 105/70
[2017-07-15 04:00] VITALS: BP 103/73
[2017-07-15] MEDS: D5 1/2NS 1,000 ML IV SCH ×2 (04:06→22:00)
[2017-07-15] MEDS: Piperacillin/Tazobactam 3.375 GM in D5W 110 ML IVPB SCH ×3 (06:26→22:29)
[2017-07-15 09:00] VITALS: BP 135/68
[2017-07-15] MEDS: Heparin 5000 units/ml inj SUBQ SCH ×2 (09:00→20:51)
[2017-07-15] MEDS: Depakote 500mg tab ORAL SCH ×3 (10:01→18:21)
--- NOTE | 2017-07-15 10:03 | Diagnostic Imaging Report ---
Indication: Shortness of breath Comparison: 07/13/2017 Findings: Single view of the chest is obtained. Cardiac size is normal. Pulmonary vasculature normal. Bibasilar atelectasis is noted. No definite infiltrates are seen. Impression: Bibasilar atelectasis.
--- NOTE | 2017-07-15 10:22 | General Progress Note ---
Assessment/Plan Problem List: (1) Hepatic encephalopathy ICD Codes: K72.90 - Hepatic failure, unspecified without coma SNOMED: 68627974 (2) Anemia ICD Codes: D64.9 - Anemia, unspecified SNOMED: 230780929 (3) s/p craniotomy (4) Cirrhosis ICD Codes: K74.60 - Unspecified cirrhosis of liver SNOMED: 99995028 (5) Sepsis ICD Codes: A41.9 - Sepsis, unspecified organism SNOMED: 24427736 (6) GERD (gastroesophageal reflux disease) ICD Codes: K21.9 - Gastro-esophageal reflux disease without esophagitis SNOMED: 550659673 (7) r/o seizure disorder (8) s/o byfrontal encephalomalatia/ craniotomy (9) Hypokalemia ICD Codes: E87.6 - Hypokalemia SNOMED: 75679446 (10) HCAP (healthcare-associated pneumonia) ICD Codes: J18.9 - Pneumonia, unspecified organism SNOMED: 259230813 Status: stable, progressing, tolerating diet Assessment/Plan o2 pulm tx abx ot pt diet cbc bmp am neph eval Subjective Constitutional: Reports: weakness Allergies: Coded Allergies: No Known Allergies (Unverified , 07/19/16) All Systems: reviewed and negative except above Subjective calm in bed Objective Last 24 Hour Vital Signs Date Time Temp Pulse Resp B/P (MAP) Pulse Ox O2 Delivery O2 Flow Rate FiO2 07/15/17 09:00 97.0 73 18 135/68 97 Room Air 07/15/17 04:00 97.0 63 20 103/73 100 Room Air 07/15/17 00:00 96.6 60 21 105/70 100 Room Air 07/14/17 20:36 69 18 Room Air 07/14/17 20:00 97.9 69 20 107/68 96 Room Air 07/14/17 12:15 97.5 68 21 127/77 97 Room Air Height (Feet): 5 Height (Inches): 7.00 Weight (Pounds): 180 General Appearance: lethargic EENT: normal ENT inspection Neck: normal alignment Cardiovascular: normal peripheral pulses, normal rate, regular rhythm Respiratory/Chest: chest wall non-tender, lungs clear, normal breath sounds Abdomen: normal bowel sounds, non tender, soft Extremities: normal inspection Edema: no edema noted Arm (L), no edema noted Arm (R), no edema noted Leg (L), no edema noted Leg (R), no edema noted Pedal (L), no edema noted Pedal (R), no edema noted Generalized Neurologic: motor weakness Skin: normal pigmentation, warm/dry CARLENE CASTRO Jul 15, 2017 10:21
[2017-07-15] MEDS ORDERED: D5 1/2NS 1000ml IV ONE (10:24)
[2017-07-15 11:20] LABS: BASOPHILS % (AUTO) 0.8 % (0.0-2.0); EOSINOPHILS % (AUTO) 0.6 % (0.0-3.0); LYMPHOCYTES % (AUTO) 36.9 % (20.0-45.0); MEAN CORPUSCULAR HEMOGLOBIN 32.6 PG (27.0-31.0); MEAN CORPUSCULAR HGB CONC 33.4 G/DL (32.0-36.0); MEAN CORPUSCULAR VOLUME 98 FL (80-99); MEAN PLATELET VOLUME 6.4 FL (6.5-10.1); NEUTROPHILS % (AUTO) 48.7 % (45.0-75.0); PLATELET COUNT 137 K/UL (150-450); RED BLOOD COUNT 3.27 M/UL (4.70-6.10); RED CELL DISTRIBUTION WIDTH 13.2 % (11.6-14.8); WHITE BLOOD COUNT 5.6 K/UL (4.8-10.8)
[2017-07-15 11:55] LABS: ANION GAP 5 (5-15); CALCIUM 8.9 MG/DL (8.5-10.1); CARBON DIOXIDE 30 MMOL/L (21-32); CHLORIDE 102 MMOL/L (98-107); CREATININE 0.6 MG/DL (0.55-1.30); POTASSIUM 4.4 MMOL/L (3.5-5.1); SODIUM 137 MMOL/L (136-145)
[2017-07-15 11:57] LABS: MAGNESIUM 1.6 MG/DL (1.8-2.4)
[2017-07-15] MEDS: Vancomycin 1.5 GM/D5W 250ML IVPB SCH (13:37)
--- NOTE | 2017-07-15 14:34 | Pulmonology Progress Note ---
Assessment/Plan Assessment/Plan ASSESSMENT possible sepsis possible HCAP COPD acute on chronic hepatic encephalopathy history of severe head trauma required right craniotomy bacteremia - GPC - real vs contaminant anemia seizure disorder e/lyte imbalance : hypo Na, hypo K, hypo Mg chronic encephalopathy PLAN OF CARE MS floor O2 HHN prn fup CXR this am - bibasilar atelectasis, no definite infiltrate empiric abx fup with cx , blood cx 10/04 GPC -real vs contaminant ID follows seizure precautions continue Depakote neuro follows LFT stable gentle IVF monitor lytes check ammonia-104, on Rifaximin, add Lactulose monitor HH-at baseline bowel regimen Namenda DVT prophayxlis case discussed and evaluated by supervising physician Subjective Allergies: Coded Allergies: No Known Allergies (Unverified , 07/19/16) Subjective leukocytosis resolved, afebrile high ammonia-109 low Mg-1.6 no signs of respiratory distress Objective Last 24 Hour Vital Signs Date Time Temp Pulse Resp B/P (MAP) Pulse Ox O2 Delivery O2 Flow Rate FiO2 07/15/17 12:47 73 18 Room Air 07/15/17 09:00 97.0 73 18 135/68 97 Room Air 07/15/17 04:00 97.0 63 20 103/73 100 Room Air 07/15/17 00:00 96.6 60 21 105/70 100 Room Air 07/14/17 20:36 69 18 Room Air 07/14/17 20:00 97.9 69 20 107/68 96 Room Air Objective General Appearance: alert Lines, tubes and drains: peripheral HEENT: evidence of right craniotomy Respiratory/Chest: chest wall non-tender, no accessory muscle use, few isolated rhonchi Cardiovascular/Chest: normal peripheral pulses, normal rate, regular rhythm, no JVD Extremities: paraparesis Musculoskeletal: atrophy of BLE Microbiology Date/Time Source Procedure Growth Status 07/13/17 11:55 Blood Blood Culture - Preliminary NO GROWTH AFTER 24 HOURS Resulted 07/13/17 11:30 Blood Blood Culture - Preliminary Gram Positive Cocci Resulted 07/14/17 02:00 Nasal Not Otherwise Specified Influenza Types A,B Antigen (RADHA) - Final Complete 07/13/17 11:20 Nasal Nares MRSA Culture - Final NO METHICILLIN RESISTANT STAPH AUREUS... Complete 07/13/17 12:34 Rectum VRE Culture - Final Enterococcus Faecium - Vre Complete Laboratory Tests 07/15/17 10:26: White Blood Count 5.6, Red Blood Count 3.27L, Hemoglobin 10.7L, Hematocrit 32.0L , Mean Corpuscular Volume 98, Mean Corpuscular Hemoglobin 32.6H, Mean Corpuscular Hemoglobin Concent 33.4, Red Cell Distribution Width 13.2, Platelet Count 137L, Mean Platelet Volume 6.4L, Neutrophils (%) (Auto) 48.7, Lymphocytes (%) (Auto) 36.9, Monocytes (%) (Auto) 13.0H, Eosinophils (%) (Auto) 0.6, Basophils (%) (Auto) 0.8, Sodium Level 137, Potassium Level 4.4, Chloride Level 102, Carbon Dioxide Level 30, Anion Gap 5, Blood Urea Nitrogen 9, Creatinine 0.6 , Estimat Glomerular Filtration Rate , Glucose Level 74, Calcium Level 8.9, Magnesium Level 1.6L, Ammonia 109H Current Medications Medications (Trade) Dose Ordered Sig/Zuhair Route PRN Reason Start Time Stop Time Status Last Admin Dose Admin Acetaminophen (Tylenol) 650 mg Q4H PRN ORAL T>100.5 F 07/13/17 11:15 08/12/17 11:14 Albuterol/ Ipratropium (DuoNeb 0.5-3(2.5)mg/3ml) 3 ml Q4H PRN HHN Shortness of Breath 07/13/17 11:15 07/18/17 11:14 Dextrose (Dextrose 50%) STAT PRN IV Hypoglycemia 07/13/17 11:15 08/12/17 11:14 Dextrose/Sodium Chloride 1,000 ml @ 60 mls/hr [id number] IV 07/13/17 20:00 08/12/17 19:59 07/15/17 04:06 Divalproex Sodium (Depakote) 500 mg TID ORAL 07/13/17 14:00 08/12/17 13:59 07/15/17 13:25 Heparin Sodium (Porcine) (Heparin 5000 units/ml) 5,000 units EVERY 12 HOURS SUBQ 07/13/17 21:00 08/12/17 20:59 07/14/17 20:45 Morphine Sulfate (Morphine Sulfate) 2 mg Q4H PRN IVP Severe Pain (Pain Scale 7-10) 07/13/17 11:15 07/20/17 11:14 Ondansetron HCl (Zofran) 4 mg Q6H PRN IVP Nausea & Vomiting 07/13/17 11:15 08/12/17 11:14 Piperacillin Sod/ Tazobactam Sod 3.375 gm/Dextrose 110 ml @ 27.5 mls/hr EVERY 8 HOURS IVPB 07/13/17 20:00 07/18/17 19:59 07/15/17 06:26 Polyethylene Glycol (Miralax) 17 gm DAILYPRN PRN ORAL Constipation 07/13/17 11:15 08/12/17 11:14 Rifaximin (Xifaxan) 550 mg Q12HR ORAL 07/13/17 21:00 07/20/17 20:59 07/15/17 10:01 Vancomycin HCl (Vanco rx to dose) 1 ea DAILY PRN MISC PER RX PROTOCOL 07/13/17 12:00 08/12/17 11:59 Vancomycin HCl/ Dextrose 250 ml @ 125 mls/hr Q24H IVPB 07/14/17 13:00 07/19/17 12:59 07/15/17 13:37 King ([facility])Rosa NP Jul 15, 2017 14:34
--- NOTE | 2017-07-15 14:55 | General Progress Note ---
Progress Note Progress Note [id number] patient seen and examined full note dictated GENA DUNHAM Jul 15, 2017 14:55
[2017-07-15 15:43] VITALS: BP 124/65
[2017-07-15] MEDS: Lactulose 20gm/30ml UDC ORAL SCH (18:21)
--- NOTE | 2017-07-15 19:14 | Infectious Diseases Prog Note ---
Assessment/Plan Problems: (1) HCAP (healthcare-associated pneumonia) Assessment & Plan: await sputum culture, screening for influenza is negative , continue vancomycin and Zosyn empirically, fever resolved after switching to zosyn (2) Sepsis Assessment & Plan: with gram positive cocci out of one bottle , await identification, continue wide spectrum antibiotics pending blood culture (3) Cirrhosis Assessment & Plan: supportive care , GI consult Subjective ROS Limited/Unobtainable: Yes Allergies: Coded Allergies: No Known Allergies (Unverified , 07/19/16) Subjective he responds to verbal commands , comfortable in bed, not in distress Objective Vital Signs Last 24 Hour Vital Signs Date Time Temp Pulse Resp B/P (MAP) Pulse Ox O2 Delivery O2 Flow Rate FiO2 07/15/17 15:43 98.3 87 20 124/65 95 Nasal Cannula 2.0 07/15/17 12:47 73 18 Room Air 07/15/17 09:00 97.0 73 18 135/68 97 Room Air 07/15/17 04:00 97.0 63 20 103/73 100 Room Air 07/15/17 00:00 96.6 60 21 105/70 100 Room Air 07/14/17 20:36 69 18 Room Air 07/14/17 20:00 97.9 69 20 107/68 96 Room Air Height (Feet): 5 Height (Inches): 7.00 Weight (Pounds): 180 General Appearance: WD/WN, no acute distress HEENT: normocephalic, atraumatic, anicteric, mucous membranes moist Respiratory/Chest: chest wall non-tender, lungs clear, normal breath sounds, no respiratory distress, no accessory muscle use Cardiovascular: normal peripheral pulses, normal rate, regular rhythm, no gallop/murmur, no JVD Abdomen: normal bowel sounds, soft, non tender, no organomegaly, non distended , no mass, no scars Genitourinary: normal external genitalia Extremities: no cyanosis, no clubbing Skin: no rash, no lesions Neurologic/Psychiatric: alert, responsive Lymphatic: no neck adenopathy, no groin adenopathy Microbiology Date/Time Source Procedure Growth Status 07/13/17 11:55 Blood Blood Culture - Preliminary NO GROWTH AFTER 24 HOURS Resulted 07/13/17 11:30 Blood Blood Culture - Preliminary Gram Positive Cocci Resulted 07/14/17 02:00 Nasal Not Otherwise Specified Influenza Types A,B Antigen (RADHA) - Final Complete 07/13/17 11:20 Nasal Nares MRSA Culture - Final NO METHICILLIN RESISTANT STAPH AUREUS... Complete 07/13/17 12:34 Rectum VRE Culture - Final Enterococcus Faecium - Vre Complete Laboratory Tests Test 07/15/17 10:26 White Blood Count 5.6 K/UL (4.8-10.8) Red Blood Count 3.27 M/UL (4.70-6.10) L Hemoglobin 10.7 G/DL (14.2-18.0) L Hematocrit 32.0 % (42.0-52.0) L Mean Corpuscular Volume 98 FL (80-99) Mean Corpuscular Hemoglobin 32.6 PG (27.0-31.0) H Mean Corpuscular Hemoglobin Concent 33.4 G/DL (32.0-36.0) Red Cell Distribution Width 13.2 % (11.6-14.8) Platelet Count 137 K/UL (150-450) L Mean Platelet Volume 6.4 FL (6.5-10.1) L Neutrophils (%) (Auto) 48.7 % (45.0-75.0) Lymphocytes (%) (Auto) 36.9 % (20.0-45.0) Monocytes (%) (Auto) 13.0 % (1.0-10.0) H Eosinophils (%) (Auto) 0.6 % (0.0-3.0) Basophils (%) (Auto) 0.8 % (0.0-2.0) Sodium Level 137 MMOL/L (136-145) Potassium Level 4.4 MMOL/L (3.5-5.1) Chloride Level 102 MMOL/L (98-107) Carbon Dioxide Level 30 MMOL/L (21-32) Anion Gap 5 (5-15) Blood Urea Nitrogen 9 mg/dL (7-18) Creatinine 0.6 MG/DL (0.55-1.30) Estimat Glomerular Filtration Rate mL/min (>60) Glucose Level 74 MG/DL (74-106) Calcium Level 8.9 MG/DL (8.5-10.1) Magnesium Level 1.6 MG/DL (1.8-2.4) L Ammonia 109 umol/L (11.2-31.7) H Current Medications Medications (Trade) Dose Ordered Sig/Zuhair Route PRN Reason Start Time Stop Time Status Last Admin Dose Admin Acetaminophen (Tylenol) 650 mg Q4H PRN ORAL T>100.5 F 07/13/17 11:15 08/12/17 11:14 Albuterol/ Ipratropium (DuoNeb 0.5-3(2.5)mg/3ml) 3 ml Q4H PRN HHN Shortness of Breath 07/13/17 11:15 07/18/17 11:14 Dextrose (Dextrose 50%) STAT PRN IV Hypoglycemia 07/13/17 11:15 08/12/17 11:14 Dextrose/Sodium Chloride 1,000 ml @ 60 mls/hr [id number] IV 07/13/17 20:00 08/12/17 19:59 07/15/17 04:06 Divalproex Sodium (Depakote) 500 mg TID ORAL 07/13/17 14:00 08/12/17 13:59 07/15/17 18:21 Heparin Sodium (Porcine) (Heparin 5000 units/ml) 5,000 units EVERY 12 HOURS SUBQ 07/13/17 21:00 08/12/17 20:59 07/14/17 20:45 Lactulose (Cephulac) 30 gm THREE TIMES A DAY ORAL 07/15/17 18:00 08/14/17 17:59 07/15/17 18:21 Morphine Sulfate (Morphine Sulfate) 2 mg Q4H PRN IVP Severe Pain (Pain Scale 7-10) 07/13/17 11:15 07/20/17 11:14 Ondansetron HCl (Zofran) 4 mg Q6H PRN IVP Nausea & Vomiting 07/13/17 11:15 08/12/17 11:14 Piperacillin Sod/ Tazobactam Sod 3.375 gm/Dextrose 110 ml @ 27.5 mls/hr EVERY 8 HOURS IVPB 07/13/17 20:00 07/18/17 19:59 07/15/17 15:52 Polyethylene Glycol (Miralax) 17 gm DAILYPRN PRN ORAL Constipation 07/13/17 11:15 08/12/17 11:14 Rifaximin (Xifaxan) 550 mg Q12HR ORAL 07/13/17 21:00 07/20/17 20:59 07/15/17 10:01 Vancomycin HCl (Vanco rx to dose) 1 ea DAILY PRN MISC PER RX PROTOCOL 07/13/17 12:00 08/12/17 11:59 Vancomycin HCl/ Dextrose 250 ml @ 125 mls/hr Q24H IVPB 07/14/17 13:00 07/19/17 12:59 07/15/17 13:37 Christina Combs M.D. Jul 15, 2017 19:14
[2017-07-15 19:32] LABS: APPEARANCE,URINE CLEAR; KETONES,URINE NEGATIVE (NEGATIVE); LEUKOCYTE ESTERASE ,URINE NEGATIVE (NEGATIVE); NITRITE,URINE NEGATIVE (NEGATIVE); PH,URINE 7 (4.5-8.0); PROTEIN,URINE NEGATIVE (NEGATIVE); UROBILINOGEN,URINE NORMAL MG/DL (0.0-1.0)
[2017-07-15 21:00] VITALS: BP 114/74
[2017-07-15 21:05] LABS: BACTERIA,URINE OCCASIONAL /HPF; RBC,URINE 0 /HPF (0 - 0); SQUAMOUS EPITHELIAL CELL,UR OCCASIONAL /LPF (NONE/OCC); WBC,URINE 0-2 /HPF (0 - 0)
[2017-07-15 21:19] LABS: CREATININE, RANDOM URINE 9.2 MG/DL (30.0-125.0)
[2017-07-16] VITALS: BP 125/73
[2017-07-16] MEDS: D5 1/2NS 1,000 ML IV SCH (03:49)
[2017-07-16 04:00] VITALS: BP 138/79
[2017-07-16] MEDS: Piperacillin/Tazobactam 3.375 GM in D5W 110 ML IVPB SCH ×3 (05:57→22:00)
[2017-07-16 08:00] VITALS: BP 143/88
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
[2017-07-16] MEDS: Heparin 5000 units/ml inj SUBQ SCH ×2 (08:46→20:47)
[2017-07-16] MEDS: Lactulose 20gm/30ml UDC ORAL SCH ×3 (09:33→18:56)
[2017-07-16] MEDS: Depakote 500mg tab ORAL SCH ×3 (09:33→18:56)
[2017-07-16 10:58] LABS: BASOPHILS % (AUTO) 1.4 % (0.0-2.0); LYMPHOCYTES % (AUTO) 44.2 % (20.0-45.0); MEAN CORPUSCULAR HEMOGLOBIN 32.1 PG (27.0-31.0); MEAN CORPUSCULAR HGB CONC 32.9 G/DL (32.0-36.0); MEAN CORPUSCULAR VOLUME 98 FL (80-99); MEAN PLATELET VOLUME 5.8 FL (6.5-10.1); MONOCYTES % (AUTO) 11.4 % (1.0-10.0); PLATELET COUNT 125 K/UL (150-450); RED BLOOD COUNT 3.58 M/UL (4.70-6.10); RED CELL DISTRIBUTION WIDTH 13.5 % (11.6-14.8); WHITE BLOOD COUNT 4.8 K/UL (4.8-10.8)
[2017-07-16 11:01] LABS: ANION GAP 5 (5-15); CARBON DIOXIDE 31 MMOL/L (21-32); CHLORIDE 103 MMOL/L (98-107); CREATININE 0.7 MG/DL (0.55-1.30); POTASSIUM 3.7 MMOL/L (3.5-5.1); SODIUM 139 MMOL/L (136-145)
--- NOTE | 2017-07-16 11:55 | General Progress Note ---
Assessment/Plan Problem List: (1) Hepatic encephalopathy ICD Codes: K72.90 - Hepatic failure, unspecified without coma SNOMED: 84818445 (2) Anemia ICD Codes: D64.9 - Anemia, unspecified SNOMED: 764853664 (3) s/p craniotomy (4) Cirrhosis ICD Codes: K74.60 - Unspecified cirrhosis of liver SNOMED: 04536267 (5) Sepsis ICD Codes: A41.9 - Sepsis, unspecified organism SNOMED: 63085368 (6) GERD (gastroesophageal reflux disease) ICD Codes: K21.9 - Gastro-esophageal reflux disease without esophagitis SNOMED: 897864086 (7) r/o seizure disorder (8) s/o byfrontal encephalomalatia/ craniotomy (9) Hypokalemia ICD Codes: E87.6 - Hypokalemia SNOMED: 53865460 (10) HCAP (healthcare-associated pneumonia) ICD Codes: J18.9 - Pneumonia, unspecified organism SNOMED: 989641320 Status: stable, progressing, tolerating diet Assessment/Plan o2 pulm tx abx ot pt diet cbc bmp am dc plan Subjective Constitutional: Reports: weakness Allergies: Coded Allergies: No Known Allergies (Unverified , 07/19/16) All Systems: reviewed and negative except above Subjective calm in bed Objective Last 24 Hour Vital Signs Date Time Temp Pulse Resp B/P (MAP) Pulse Ox O2 Delivery O2 Flow Rate FiO2 07/16/17 08:00 97.2 72 17 143/88 100 07/16/17 07:56 67 18 Room Air 21 07/16/17 04:00 98.2 77 20 138/79 94 Room Air 07/16/17 01:30 68 18 Room Air 21 07/16/17 00:00 97.5 84 20 125/73 96 Room Air 07/15/17 21:00 98.2 83 20 114/74 96 Room Air 07/15/17 15:43 98.3 87 20 124/65 95 Nasal Cannula 2.0 07/15/17 12:47 73 18 Room Air Intake and Output 07/16/17 07/17/17 19:00 07:00 # Bowel Movements 1 Laboratory Tests 07/15/17 18:40: Urine Color Pale yellow, Urine Appearance Clear, Urine pH 7, Urine Specific [place] 1.005, Urine Protein Negative, Urine Glucose (UA) Negative, Urine Ketones Negative, Urine Occult Blood Negative, Urine Nitrite Negative, Urine Bilirubin Negative, Urine Urobilinogen Normal, Urine Leukocyte Esterase Negative , Urine RBC 0, Urine WBC 0-2, Urine Squamous Epithelial Cells Occasional, Urine Bacteria Occasional, Urine Eosinophils None seen, Urine Random Creatinine [ Pending], Urine Random Microalbumin [Pending], Urine Random Total Protein 1, Urine Random Sodium 59, Urine Creatinine 9.2L, Urine Microalbumin/Creatinine Ratio [Pending] 07/16/17 10:35: White Blood Count 4.8, Red Blood Count 3.58L, Hemoglobin 11.5L, Hematocrit 35.0L , Mean Corpuscular Volume 98, Mean Corpuscular Hemoglobin 32.1H, Mean Corpuscular Hemoglobin Concent 32.9, Red Cell Distribution Width 13.5, Platelet Count 125L, Mean Platelet Volume 5.8L, Neutrophils (%) (Auto) 42.0L, Lymphocytes (%) (Auto) 44.2, Monocytes (%) (Auto) 11.4H, Eosinophils (%) (Auto) 1.0, Basophils (%) (Auto) 1.4, Sodium Level 139, Potassium Level 3.7, Chloride Level 103, Carbon Dioxide Level 31, Anion Gap 5, Blood Urea Nitrogen 6L, Creatinine 0.7, Estimat Glomerular Filtration Rate , Glucose Level 72L, Calcium Level 9.0, Magnesium Level 1.9 Height (Feet): 5 Height (Inches): 7.00 Weight (Pounds): 180 General Appearance: lethargic EENT: normal ENT inspection Neck: normal alignment Cardiovascular: normal peripheral pulses, normal rate, regular rhythm Respiratory/Chest: chest wall non-tender, lungs clear, normal breath sounds Abdomen: normal bowel sounds, non tender, soft Extremities: normal inspection Edema: no edema noted Arm (L), no edema noted Arm (R), no edema noted Leg (L), no edema noted Leg (R), no edema noted Pedal (L), no edema noted Pedal (R), no edema noted Generalized Neurologic: motor weakness Skin: normal pigmentation, warm/dry CARLENE CASTRO Jul 16, 2017 11:54
[2017-07-16 12:00] VITALS: BP 138/95
[2017-07-16] MEDS: Vancomycin 1.5 GM/D5W 250ML IVPB SCH (13:09)
--- NOTE | 2017-07-16 15:39 | Pulmonology Progress Note ---
Assessment/Plan Problems: (1) HCAP (healthcare-associated pneumonia) (2) Hepatic encephalopathy (3) Anemia (4) s/p craniotomy (5) skilled nursing resident (6) Cirrhosis (7) GERD (gastroesophageal reflux disease) Assessment/Plan swallow study noted RECOMMENDATIONS: CONTINUE WITH LOW NA AND BLAND (FOR GERD) AND FORTIFIED LIQUIFIED PUREED LIKE NECTAR THICK SOUP DIET WITH NECTAR THICK LIQUIDS AND UPDATED/POSTED ASPIRATION AND REFLUX PRECAUTIONS. continue ab respiratory treatment f/u [place] level check labs in am dvt prophylaxis Subjective ROS Limited/Unobtainable: No Constitutional: Reports: no symptoms HEENT: Repors: no symptoms Respiratory: Reports: no symptoms Allergies: Coded Allergies: No Known Allergies (Unverified , 07/19/16) Objective Last 24 Hour Vital Signs Date Time Temp Pulse Resp B/P (MAP) Pulse Ox O2 Delivery O2 Flow Rate FiO2 07/16/17 12:00 97.3 101 16 138/95 96 07/16/17 08:00 97.2 72 17 143/88 100 07/16/17 07:56 67 18 Room Air 21 07/16/17 04:00 98.2 77 20 138/79 94 Room Air 07/16/17 01:30 68 18 Room Air 21 07/16/17 00:00 97.5 84 20 125/73 96 Room Air 07/15/17 21:00 98.2 83 20 114/74 96 Room Air 07/15/17 15:43 98.3 87 20 124/65 95 Nasal Cannula 2.0 Intake and Output 07/16/17 07/17/17 19:00 07:00 # Bowel Movements 1 General Appearance: WD/WN HEENT: normocephalic, anicteric Respiratory/Chest: chest wall non-tender, lungs clear Cardiovascular: normal peripheral pulses, normal rate Abdomen: normal bowel sounds, soft, non tender Extremities: no cyanosis Skin: no rash, no ulcers Microbiology Date/Time Source Procedure Growth Status 07/14/17 02:00 Nasal Not Otherwise Specified Influenza Types A,B Antigen (RADHA) - Final Complete Laboratory Tests 07/15/17 18:40: Urine Color Pale yellow, Urine Appearance Clear, Urine pH 7, Urine Specific [place] 1.005, Urine Protein Negative, Urine Glucose (UA) Negative, Urine Ketones Negative, Urine Occult Blood Negative, Urine Nitrite Negative, Urine Bilirubin Negative, Urine Urobilinogen Normal, Urine Leukocyte Esterase Negative , Urine RBC 0, Urine WBC 0-2, Urine Squamous Epithelial Cells Occasional, Urine Bacteria Occasional, Urine Eosinophils None seen, Urine Random Creatinine [ Pending], Urine Random Microalbumin [Pending], Urine Random Total Protein 1, Urine Random Sodium 59, Urine Creatinine 9.2L, Urine Microalbumin/Creatinine Ratio [Pending] 07/16/17 10:35: White Blood Count 4.8, Red Blood Count 3.58L, Hemoglobin 11.5L, Hematocrit 35.0L , Mean Corpuscular Volume 98, Mean Corpuscular Hemoglobin 32.1H, Mean Corpuscular Hemoglobin Concent 32.9, Red Cell Distribution Width 13.5, Platelet Count 125L, Mean Platelet Volume 5.8L, Neutrophils (%) (Auto) 42.0L, Lymphocytes (%) (Auto) 44.2, Monocytes (%) (Auto) 11.4H, Eosinophils (%) (Auto) 1.0, Basophils (%) (Auto) 1.4, Sodium Level 139, Potassium Level 3.7, Chloride Level 103, Carbon Dioxide Level 31, Anion Gap 5, Blood Urea Nitrogen 6L, Creatinine 0.7, Estimat Glomerular Filtration Rate , Glucose Level 72L, Calcium Level 9.0, Magnesium Level 1.9 07/16/17 11:55: Vancomycin Level Trough 11.1 Current Medications Medications (Trade) Dose Ordered Sig/Zuhair Route PRN Reason Start Time Stop Time Status Last Admin Dose Admin Acetaminophen (Tylenol) 650 mg Q4H PRN ORAL T>100.5 F 07/13/17 11:15 08/12/17 11:14 Albuterol/ Ipratropium (DuoNeb 0.5-3(2.5)mg/3ml) 3 ml Q4H PRN HHN Shortness of Breath 07/13/17 11:15 07/18/17 11:14 Dextrose (Dextrose 50%) STAT PRN IV Hypoglycemia 07/13/17 11:15 08/12/17 11:14 Dextrose/Sodium Chloride 1,000 ml @ 60 mls/hr [id number] IV 07/13/17 20:00 08/12/17 19:59 07/16/17 03:49 Divalproex Sodium (Depakote) 500 mg TID ORAL 07/13/17 14:00 08/12/17 13:59 07/16/17 13:08 Heparin Sodium (Porcine) (Heparin 5000 units/ml) 5,000 units EVERY 12 HOURS SUBQ 07/13/17 21:00 08/12/17 20:59 07/14/17 20:45 Lactulose (Cephulac) 30 gm THREE TIMES A DAY ORAL 07/15/17 18:00 08/14/17 17:59 07/16/17 13:08 Morphine Sulfate (Morphine Sulfate) 2 mg Q4H PRN IVP Severe Pain (Pain Scale 7-10) 07/13/17 11:15 07/20/17 11:14 Ondansetron HCl (Zofran) 4 mg Q6H PRN IVP Nausea & Vomiting 07/13/17 11:15 08/12/17 11:14 Piperacillin Sod/ Tazobactam Sod 3.375 gm/Dextrose 110 ml @ 27.5 mls/hr EVERY 8 HOURS IVPB 07/13/17 20:00 07/18/17 19:59 07/16/17 05:57 Polyethylene Glycol (Miralax) 17 gm DAILYPRN PRN ORAL Constipation 07/13/17 11:15 08/12/17 11:14 Rifaximin (Xifaxan) 550 mg Q12HR ORAL 07/13/17 21:00 08/15/17 20:59 07/16/17 09:33 Vancomycin HCl (Vanco rx to dose) 1 ea DAILY PRN MISC PER RX PROTOCOL 07/13/17 12:00 08/12/17 11:59 Vancomycin HCl/ Dextrose 250 ml @ 125 mls/hr Q24H IVPB 07/14/17 13:00 07/19/17 12:59 07/16/17 13:09 FOSTER MURILLO Jul 16, 2017 15:39
[2017-07-16 16:00] VITALS: BP 129/104
--- NOTE | 2017-07-16 18:43 | Nephrology Progress Note ---
Assessment/Plan Assessment 1. Hypokalemia. 2. Hyponatremia. 3. dehydration 4. Dehydration. 5. Malnutrition, based on albumin. 6. Hypomagnesemia. 7. Possible pneumonia. Plan plan to replace electrolyte as need monitoring renal function avoid any NSAID Check pre-albumin level Subjective ROS Limited/Unobtainable: Yes Constitutional: Reports: no symptoms HEENT: Reports: no symptoms Genitourinary: Reports: no symptoms Neurologic/Psychiatric: Reports: no symptoms Subjective no acute events Objective Objective Last 24 Hour Vital Signs Date Time Temp Pulse Resp B/P (MAP) Pulse Ox O2 Delivery O2 Flow Rate FiO2 07/16/17 12:00 97.3 101 16 138/95 96 07/16/17 08:00 97.2 72 17 143/88 100 07/16/17 07:56 67 18 Room Air 21 07/16/17 04:00 98.2 77 20 138/79 94 Room Air 07/16/17 01:30 68 18 Room Air 21 07/16/17 00:00 97.5 84 20 125/73 96 Room Air 07/15/17 21:00 98.2 83 20 114/74 96 Room Air Intake and Output 07/16/17 07/17/17 19:00 07:00 # Bowel Movements 1 Laboratory Tests 07/15/17 18:40: Urine Color Pale yellow, Urine Appearance Clear, Urine pH 7, Urine Specific [place] 1.005, Urine Protein Negative, Urine Glucose (UA) Negative, Urine Ketones Negative, Urine Occult Blood Negative, Urine Nitrite Negative, Urine Bilirubin Negative, Urine Urobilinogen Normal, Urine Leukocyte Esterase Negative , Urine RBC 0, Urine WBC 0-2, Urine Squamous Epithelial Cells Occasional, Urine Bacteria Occasional, Urine Eosinophils None seen, Urine Random Creatinine [ Pending], Urine Random Microalbumin [Pending], Urine Random Total Protein 1, Urine Random Sodium 59, Urine Creatinine 9.2L, Urine Microalbumin/Creatinine Ratio [Pending] 07/16/17 10:35: White Blood Count 4.8, Red Blood Count 3.58L, Hemoglobin 11.5L, Hematocrit 35.0L , Mean Corpuscular Volume 98, Mean Corpuscular Hemoglobin 32.1H, Mean Corpuscular Hemoglobin Concent 32.9, Red Cell Distribution Width 13.5, Platelet Count 125L, Mean Platelet Volume 5.8L, Neutrophils (%) (Auto) 42.0L, Lymphocytes (%) (Auto) 44.2, Monocytes (%) (Auto) 11.4H, Eosinophils (%) (Auto) 1.0, Basophils (%) (Auto) 1.4, Sodium Level 139, Potassium Level 3.7, Chloride Level 103, Carbon Dioxide Level 31, Anion Gap 5, Blood Urea Nitrogen 6L, Creatinine 0.7, Estimat Glomerular Filtration Rate , Glucose Level 72L, Calcium Level 9.0, Magnesium Level 1.9 07/16/17 11:55: Vancomycin Level Trough 11.1 Height (Feet): 5 Height (Inches): 7.00 Weight (Pounds): 180 Objective HEAD AND NECK: Normocephalic. Extraocular movement intact. Pupils are reactive to light and accommodation. LUNGS: Bilateral rhonchi. HEART: Regular rate and rhythm. S1 and S2 are normal. No rub. ABDOMEN: Soft, nontender, and nondistended. EXTREMITIES: No clubbing, or cyanosis. GENA DUNHAM Jul 16, 2017 18:43
--- NOTE | 2017-07-16 19:56 | Wound Care Consultation ---
Wound Assessment Wound Assessment : Wound Number: 1 Wound Present on Admission: Yes New Wound: No Status Change of Wound: No Wound Location Body Site Modif: mid Wound Location Body Site: sacral Wound Type: pressure ulcer Tommie Test: Does not Tommie Pressure Ulcer Stage: Deep Tissue Injury - and resurfaced scar tissue Wound Thickness: Full Thickness Wound Length: 3.0 Wound Width: 5.0 Wound Depth: utd Percent of Wound Purple/Maroon: 100 Wound Drainage Amount: None Wound Drainage Odor: None/Absent Tissue Surrounding Wound: Erythemic Wound General Appearance: Reddened Wound Comment #1 Sacral DTI and resurfaced dry scab wound on a scar tissue L 0.3 X W 0.3 Recommendation -Local wound care with skin barrier film and dry drg daily -Keep clean and dry -Turn and reposition -Low air loss mattress -Optimize nutrition -Offload both heels -Heel protector on both heels -Assess and f/u accordingly for any changes DAKOTA OLRA RN Jul 16, 2017 19:56
[2017-07-16 20:00] VITALS: BP 106/63
--- NOTE | 2017-07-16 23:25 | Infectious Diseases Prog Note ---
Assessment/Plan Problems: (1) Sepsis Assessment & Plan: Resolved. Due to pneumonia probably. (2) HCAP (healthcare-associated pneumonia) Assessment & Plan: Finish another 5-day of Zosyn for a 10-day course. Follow-up CXR better. (3) Cirrhosis (4) Hepatic encephalopathy (5) Positive blood culture Assessment & Plan: Most likely contaminant. Taper vancomycin IV. Assessment/Plan Patient has poor IV access and need PICC line for continued IV antibiotics. Given there is no one to give consent I agree it is needed. Subjective ROS Limited/Unobtainable: Yes Allergies: Coded Allergies: No Known Allergies (Unverified , 07/19/16) Subjective No fever. Objective Vital Signs Last 24 Hour Vital Signs Date Time Temp Pulse Resp B/P (MAP) Pulse Ox O2 Delivery O2 Flow Rate FiO2 07/16/17 20:00 97.9 103 20 106/63 94 Room Air 07/16/17 19:05 71 18 Room Air 21 07/16/17 16:00 97.3 100 20 129/104 93 Room Air 07/16/17 12:00 97.3 101 16 138/95 96 07/16/17 08:00 97.2 72 17 143/88 100 07/16/17 07:56 67 18 Room Air 21 07/16/17 04:00 98.2 77 20 138/79 94 Room Air 07/16/17 01:30 68 18 Room Air 21 07/16/17 00:00 97.5 84 20 125/73 96 Room Air Height (Feet): 5 Height (Inches): 7.00 Weight (Pounds): 180 General Appearance: no acute distress HEENT: normocephalic Respiratory/Chest: no respiratory distress Abdomen: soft, non tender Extremities: no cyanosis Skin: other Neurologic/Psychiatric: disoriented Musculoskeletal: no effusion Objective Skin dry. Microbiology Date/Time Source Procedure Growth Status 07/14/17 02:00 Nasal Not Otherwise Specified Influenza Types A,B Antigen (RADHA) - Final Complete Laboratory Tests Test 07/16/17 10:35 07/16/17 11:55 White Blood Count 4.8 K/UL (4.8-10.8) Red Blood Count 3.58 M/UL (4.70-6.10) L Hemoglobin 11.5 G/DL (14.2-18.0) L Hematocrit 35.0 % (42.0-52.0) L Mean Corpuscular Volume 98 FL (80-99) Mean Corpuscular Hemoglobin 32.1 PG (27.0-31.0) H Mean Corpuscular Hemoglobin Concent 32.9 G/DL (32.0-36.0) Red Cell Distribution Width 13.5 % (11.6-14.8) Platelet Count 125 K/UL (150-450) L Mean Platelet Volume 5.8 FL (6.5-10.1) L Neutrophils (%) (Auto) 42.0 % (45.0-75.0) L Lymphocytes (%) (Auto) 44.2 % (20.0-45.0) Monocytes (%) (Auto) 11.4 % (1.0-10.0) H Eosinophils (%) (Auto) 1.0 % (0.0-3.0) Basophils (%) (Auto) 1.4 % (0.0-2.0) Sodium Level 139 MMOL/L (136-145) Potassium Level 3.7 MMOL/L (3.5-5.1) Chloride Level 103 MMOL/L (98-107) Carbon Dioxide Level 31 MMOL/L (21-32) Anion Gap 5 (5-15) Blood Urea Nitrogen 6 mg/dL (7-18) L Creatinine 0.7 MG/DL (0.55-1.30) Estimat Glomerular Filtration Rate mL/min (>60) Glucose Level 72 MG/DL (74-106) L Calcium Level 9.0 MG/DL (8.5-10.1) Magnesium Level 1.9 MG/DL (1.5-2.4) Vancomycin Level Trough 11.1 ug/mL (5.0-12.0) Current Medications Medications (Trade) Dose Ordered Sig/Zuhair Route PRN Reason Start Time Stop Time Status Last Admin Dose Admin Acetaminophen (Tylenol) 650 mg Q4H PRN ORAL T>100.5 F 07/13/17 11:15 08/12/17 11:14 Albuterol/ Ipratropium (DuoNeb 0.5-3(2.5)mg/3ml) 3 ml Q4H PRN HHN Shortness of Breath 07/13/17 11:15 07/18/17 11:14 Chlorhexidine Gluconate (Shelbi-Hex 2%) 1 applic DAILY@2000 TOPIC 07/17/17 20:00 08/16/17 19:59 Dextrose (Dextrose 50%) STAT PRN IV Hypoglycemia 07/13/17 11:15 08/12/17 11:14 Dextrose/Sodium Chloride 1,000 ml @ 60 mls/hr [id number] IV 07/13/17 20:00 08/12/17 19:59 07/16/17 03:49 Divalproex Sodium (Depakote) 500 mg TID ORAL 07/13/17 14:00 08/12/17 13:59 07/16/17 18:56 Heparin Sodium (Porcine) (Heparin 5000 units/ml) 5,000 units EVERY 12 HOURS SUBQ 07/13/17 21:00 08/12/17 20:59 07/14/17 20:45 Heparin Sodium/ Sodium Chloride (Heparin 2000 units/Ns 1000ml premix) 2,000 unit ONCE ONCE INJ 07/17/17 06:00 07/17/17 06:01 Lactulose (Cephulac) 30 gm THREE TIMES A DAY ORAL 07/15/17 18:00 08/14/17 17:59 07/16/17 18:56 Lidocaine HCl (Xylocaine 1% 30ml) 30 ml ONCE ONCE INJ 07/17/17 06:00 07/17/17 06:01 Morphine Sulfate (Morphine Sulfate) 2 mg Q4H PRN IVP Severe Pain (Pain Scale 7-10) 07/13/17 11:15 07/20/17 11:14 Ondansetron HCl (Zofran) 4 mg Q6H PRN IVP Nausea & Vomiting 07/13/17 11:15 08/12/17 11:14 Piperacillin Sod/ Tazobactam Sod 3.375 gm/Dextrose 110 ml @ 27.5 mls/hr EVERY 8 HOURS IVPB 07/13/17 20:00 07/18/17 19:59 07/16/17 16:20 Polyethylene Glycol (Miralax) 17 gm DAILYPRN PRN ORAL Constipation 07/13/17 11:15 08/12/17 11:14 Rifaximin (Xifaxan) 550 mg Q12HR ORAL 07/13/17 21:00 08/15/17 20:59 07/16/17 20:51 Vancomycin HCl (Vanco rx to dose) 1 ea DAILY PRN MISC PER RX PROTOCOL 07/13/17 12:00 08/12/17 11:59 Vancomycin HCl/ Dextrose 250 ml @ 125 mls/hr Q24H IVPB 07/14/17 13:00 07/19/17 12:59 07/16/17 13:09 ARLYN REYNOSO Jul 16, 2017 23:25
[2017-07-17 00:02] VITALS: BP 110/58
[2017-07-17 04:00] VITALS: BP 149/115
[2017-07-17] MEDS: Piperacillin/Tazobactam 3.375 GM in D5W 110 ML IVPB SCH ×2 (05:17→14:26)
[2017-07-17 07:05] LABS: BASOPHILS % (AUTO) 0.8 % (0.0-2.0); EOSINOPHILS % (AUTO) 0.7 % (0.0-3.0); MEAN CORPUSCULAR HEMOGLOBIN 33.5 PG (27.0-31.0); MEAN CORPUSCULAR HGB CONC 34.5 G/DL (32.0-36.0); MEAN CORPUSCULAR VOLUME 97 FL (80-99); MONOCYTES % (AUTO) 14.6 % (1.0-10.0); NEUTROPHILS % (AUTO) 38.9 % (45.0-75.0); PLATELET COUNT 149 K/UL (150-450); RED BLOOD COUNT 3.49 M/UL (4.70-6.10); RED CELL DISTRIBUTION WIDTH 13.4 % (11.6-14.8); WHITE BLOOD COUNT 5.7 K/UL (4.8-10.8)
[2017-07-17 07:45] LABS: ANION GAP 7 mmol/L (5-15); CALCIUM 9.4 MG/DL (8.5-10.1); CARBON DIOXIDE 30 MMOL/L (21-32); CHLORIDE 106 MMOL/L (98-107); CREATININE 0.9 MG/DL (0.55-1.30); POTASSIUM 3.3 MMOL/L (3.5-5.1); SODIUM 143 MMOL/L (136-145)
[2017-07-17 08:00] VITALS: BP 133/78
[2017-07-17] MEDS: D5 1/2NS 1,000 ML IV SCH (08:41)
[2017-07-17] MEDS: Heparin 5000 units/ml inj SUBQ SCH (08:42)
[2017-07-17] MEDS: Depakote 500mg tab ORAL SCH ×2 (08:54→14:26)
[2017-07-17] MEDS: Lactulose 20gm/30ml UDC ORAL SCH ×3 (08:54→18:00)
[2017-07-17] MEDS ORDERED: Lidocaine 1% Plain 30 ml INJ ONE (09:00)
[2017-07-17] MEDS ORDERED: Heparin 2000 units/Ns 1000ml INJ ONE (09:00)
--- NOTE | 2017-07-17 09:04 | Nephrology Progress Note ---
Assessment/Plan Assessment 1. Hypokalemia. 2. Hyponatremia. 3. dehydration 4. Dehydration. 5. Malnutrition, based on albumin. 6. Hypomagnesemia. 7. Possible pneumonia. Plan plan to replace electrolyte as need monitoring renal function avoid any NSAID Check pre-albumin level Subjective Constitutional: Reports: no symptoms HEENT: Reports: no symptoms Genitourinary: Reports: no symptoms Neurologic/Psychiatric: Reports: no symptoms Subjective no acute events Objective Objective Last 24 Hour Vital Signs Date Time Temp Pulse Resp B/P (MAP) Pulse Ox O2 Delivery O2 Flow Rate FiO2 07/17/17 07:53 110 18 Room Air 21 07/17/17 04:00 96.9 116 20 149/115 95 Room Air 07/17/17 00:02 97.8 89 18 110/58 94 Room Air 07/16/17 20:00 97.9 103 20 106/63 94 Room Air 07/16/17 19:05 71 18 Room Air 21 07/16/17 16:00 97.3 100 20 129/104 93 Room Air 07/16/17 12:00 97.3 101 16 138/95 96 Laboratory Tests 07/16/17 10:35: White Blood Count 4.8, Red Blood Count 3.58L, Hemoglobin 11.5L, Hematocrit 35.0L , Mean Corpuscular Volume 98, Mean Corpuscular Hemoglobin 32.1H, Mean Corpuscular Hemoglobin Concent 32.9, Red Cell Distribution Width 13.5, Platelet Count 125L, Mean Platelet Volume 5.8L, Neutrophils (%) (Auto) 42.0L, Lymphocytes (%) (Auto) 44.2, Monocytes (%) (Auto) 11.4H, Eosinophils (%) (Auto) 1.0, Basophils (%) (Auto) 1.4, Sodium Level 139, Potassium Level 3.7, Chloride Level 103, Carbon Dioxide Level 31, Anion Gap 5, Blood Urea Nitrogen 6L, Creatinine 0.7, Estimat Glomerular Filtration Rate , Glucose Level 72L, Calcium Level 9.0, Magnesium Level 1.9 07/16/17 11:55: Vancomycin Level Trough 11.1 07/17/17 05:30: White Blood Count 5.7, Red Blood Count 3.49L, Hemoglobin 11.7L, Hematocrit 33.9L , Mean Corpuscular Volume 97, Mean Corpuscular Hemoglobin 33.5H, Mean Corpuscular Hemoglobin Concent 34.5, Red Cell Distribution Width 13.4, Platelet Count 149L, Mean Platelet Volume 7.0, Neutrophils (%) (Auto) 38.9L, Lymphocytes (%) (Auto) 45.0, Monocytes (%) (Auto) 14.6H, Eosinophils (%) (Auto) 0.7, Basophils (%) (Auto) 0.8, Sodium Level 143, Potassium Level 3.3L, Chloride Level 106, Carbon Dioxide Level 30, Anion Gap 7, Blood Urea Nitrogen 7, Creatinine 0.9, Estimat Glomerular Filtration Rate , Glucose Level 82, Calcium Level 9.4 Height (Feet): 5 Height (Inches): 7.00 Weight (Pounds): 180 Objective HEAD AND NECK: Normocephalic. Extraocular movement intact. Pupils are reactive to light and accommodation. LUNGS: Bilateral rhonchi. HEART: Regular rate and rhythm. S1 and S2 are normal. No rub. ABDOMEN: Soft, nontender, and nondistended. EXTREMITIES: No clubbing, or cyanosis. GENA DUNHAM Jul 17, 2017 09:04
[2017-07-17] MEDS ORDERED: KCl 10% 20 mEq/15ml liquid NG ONE (09:15)
[2017-07-17 12:00] VITALS: BP 120/78
[2017-07-17] MEDS: Vancomycin 1.5 GM/D5W 250ML IVPB SCH (13:00)
--- NOTE | 2017-07-17 13:04 | General Progress Note ---
Assessment/Plan Problem List: (1) Hepatic encephalopathy ICD Codes: K72.90 - Hepatic failure, unspecified without coma SNOMED: 92561153 (2) Anemia ICD Codes: D64.9 - Anemia, unspecified SNOMED: 138718294 (3) s/p craniotomy (4) Cirrhosis ICD Codes: K74.60 - Unspecified cirrhosis of liver SNOMED: 44814995 (5) Sepsis ICD Codes: A41.9 - Sepsis, unspecified organism SNOMED: 25209936 (6) GERD (gastroesophageal reflux disease) ICD Codes: K21.9 - Gastro-esophageal reflux disease without esophagitis SNOMED: 953233240 (7) r/o seizure disorder (8) s/o byfrontal encephalomalatia/ craniotomy (9) Hypokalemia ICD Codes: E87.6 - Hypokalemia SNOMED: 86287917 (10) HCAP (healthcare-associated pneumonia) ICD Codes: J18.9 - Pneumonia, unspecified organism SNOMED: 598976257 Status: stable, progressing, tolerating diet Assessment/Plan o2 pulm tx abx ot pt diet cbc bmp am dc plan Subjective Allergies: Coded Allergies: No Known Allergies (Unverified , 07/19/16) All Systems: reviewed and negative except above Subjective calm in bed Objective Last 24 Hour Vital Signs Date Time Temp Pulse Resp B/P (MAP) Pulse Ox O2 Delivery O2 Flow Rate FiO2 07/17/17 12:00 98.1 72 16 120/78 100 Room Air 07/17/17 08:00 97.3 76 14 133/78 96 Room Air 07/17/17 07:53 110 18 Room Air 21 07/17/17 04:00 96.9 116 20 149/115 95 Room Air 07/17/17 00:02 97.8 89 18 110/58 94 Room Air 07/16/17 20:00 97.9 103 20 106/63 94 Room Air 07/16/17 19:05 71 18 Room Air 21 07/16/17 16:00 97.3 100 20 129/104 93 Room Air Intake and Output 07/17/17 07/18/17 19:00 07:00 # Bowel Movements 1 Laboratory Tests 07/17/17 05:30: White Blood Count 5.7, Red Blood Count 3.49L, Hemoglobin 11.7L, Hematocrit 33.9L , Mean Corpuscular Volume 97, Mean Corpuscular Hemoglobin 33.5H, Mean Corpuscular Hemoglobin Concent 34.5, Red Cell Distribution Width 13.4, Platelet Count 149L, Mean Platelet Volume 7.0, Neutrophils (%) (Auto) 38.9L, Lymphocytes (%) (Auto) 45.0, Monocytes (%) (Auto) 14.6H, Eosinophils (%) (Auto) 0.7, Basophils (%) (Auto) 0.8, Sodium Level 143, Potassium Level 3.3L, Chloride Level 106, Carbon Dioxide Level 30, Anion Gap 7, Blood Urea Nitrogen 7, Creatinine 0.9, Estimat Glomerular Filtration Rate , Glucose Level 82, Calcium Level 9.4 Height (Feet): 5 Height (Inches): 7.00 Weight (Pounds): 180 General Appearance: lethargic EENT: normal ENT inspection Neck: normal alignment Cardiovascular: normal peripheral pulses, normal rate, regular rhythm Respiratory/Chest: chest wall non-tender, lungs clear, normal breath sounds Abdomen: normal bowel sounds, non tender, soft Extremities: normal inspection Edema: no edema noted Arm (L), no edema noted Arm (R), no edema noted Leg (L), no edema noted Leg (R), no edema noted Pedal (L), no edema noted Pedal (R), no edema noted Generalized Neurologic: motor weakness Skin: normal pigmentation, warm/dry CARLENE CASTRO Jul 17, 2017 13:03
--- NOTE | 2017-07-17 14:25 | Diagnostic Imaging Report ---
Indication: termite inspector venous access Findings: After the indications, procedure, risks, complications, and alternatives of the procedure were explained, written informed consent was obtained. The left upper extremity was prepped with alcohol. All elements of maximal sterile barrier technique were followed including usage of a cap, mask, sterile gown, sterile gloves, hand hygiene and a large sterile sheet. Sonographic evaluation of the upper extremity was performed demonstrating a patent and compressible basilic vein. Access was obtained under real-time ultrasound guidance and digital image was saved and archived. An .018 wire was introduced. Needle exchanged for a 5 Austrian peel-away sheath. Measurements were obtained. A 5 Austrian dual-lumen Power PICC line catheter was cut to 40 cm and introduced over the wire. Peel-away sheath and wire were removed.Catheter was secured to the skin using 2-0 Prolene suture. Both ports aspirate and flush easily. Fluoroscopic Images show distal tip in the superior vena cava. Total fluoroscopic time 0.3 minutes. Impression: Successful placement of an upper extremity PICC line catheter
--- NOTE | 2017-07-17 15:29 | Pulmonology Progress Note ---
Assessment/Plan Problems: (1) HCAP (healthcare-associated pneumonia) (2) Hepatic encephalopathy (3) Anemia (4) s/p craniotomy (5) [facility] resident (6) Cirrhosis (7) GERD (gastroesophageal reflux disease) Assessment/Plan swallow study noted. continue ab respiratory treatment f/u amonia level check labs in am dvt prophylaxis dc planning Subjective ROS Limited/Unobtainable: No Constitutional: Reports: no symptoms HEENT: Repors: no symptoms Respiratory: Reports: no symptoms Allergies: Coded Allergies: No Known Allergies (Unverified , 07/19/16) Objective Last 24 Hour Vital Signs Date Time Temp Pulse Resp B/P (MAP) Pulse Ox O2 Delivery O2 Flow Rate FiO2 07/17/17 12:00 98.1 72 16 120/78 100 Room Air 07/17/17 08:00 97.3 76 14 133/78 96 Room Air 07/17/17 07:53 110 18 Room Air 21 07/17/17 04:00 96.9 116 20 149/115 95 Room Air 07/17/17 00:02 97.8 89 18 110/58 94 Room Air 07/16/17 20:00 97.9 103 20 106/63 94 Room Air 07/16/17 19:05 71 18 Room Air 21 07/16/17 16:00 97.3 100 20 129/104 93 Room Air Intake and Output 07/17/17 07/18/17 19:00 07:00 # Bowel Movements 1 General Appearance: WD/WN, no acute distress HEENT: atraumatic Respiratory/Chest: chest wall non-tender, lungs clear Cardiovascular: normal peripheral pulses, normal rate Abdomen: normal bowel sounds, soft, non tender Genitourinary: normal external genitalia Extremities: no clubbing Skin: no ulcers Laboratory Tests 07/17/17 05:30: White Blood Count 5.7, Red Blood Count 3.49L, Hemoglobin 11.7L, Hematocrit 33.9L , Mean Corpuscular Volume 97, Mean Corpuscular Hemoglobin 33.5H, Mean Corpuscular Hemoglobin Concent 34.5, Red Cell Distribution Width 13.4, Platelet Count 149L, Mean Platelet Volume 7.0, Neutrophils (%) (Auto) 38.9L, Lymphocytes (%) (Auto) 45.0, Monocytes (%) (Auto) 14.6H, Eosinophils (%) (Auto) 0.7, Basophils (%) (Auto) 0.8, Sodium Level 143, Potassium Level 3.3L, Chloride Level 106, Carbon Dioxide Level 30, Anion Gap 7, Blood Urea Nitrogen 7, Creatinine 0.9, Estimat Glomerular Filtration Rate , Glucose Level 82, Calcium Level 9.4 Current Medications Medications (Trade) Dose Ordered Sig/Zuhair Route PRN Reason Start Time Stop Time Status Last Admin Dose Admin Acetaminophen (Tylenol) 650 mg Q4H PRN ORAL T>100.5 F 07/13/17 11:15 08/12/17 11:14 Albuterol/ Ipratropium (DuoNeb 0.5-3(2.5)mg/3ml) 3 ml Q4H PRN HHN Shortness of Breath 07/13/17 11:15 07/18/17 11:14 Chlorhexidine Gluconate (Shelbi-Hex 2%) 1 applic DAILY@2000 TOPIC 07/17/17 20:00 08/16/17 19:59 Dextrose (Dextrose 50%) STAT PRN IV Hypoglycemia 07/13/17 11:15 08/12/17 11:14 Dextrose/Sodium Chloride 1,000 ml @ 60 mls/hr [id number] IV 07/13/17 20:00 08/12/17 19:59 07/16/17 03:49 Divalproex Sodium (Depakote) 500 mg TID ORAL 07/13/17 14:00 08/12/17 13:59 07/17/17 14:26 Heparin Sodium (Porcine) (Heparin 5000 units/ml) 5,000 units EVERY 12 HOURS SUBQ 07/13/17 21:00 08/12/17 20:59 07/14/17 20:45 Lactulose (Cephulac) 30 gm THREE TIMES A DAY ORAL 07/15/17 18:00 08/14/17 17:59 07/17/17 14:26 Morphine Sulfate (Morphine Sulfate) 2 mg Q4H PRN IVP Severe Pain (Pain Scale 7-10) 07/13/17 11:15 07/20/17 11:14 Ondansetron HCl (Zofran) 4 mg Q6H PRN IVP Nausea & Vomiting 07/13/17 11:15 08/12/17 11:14 Piperacillin Sod/ Tazobactam Sod 3.375 gm/Dextrose 110 ml @ 27.5 mls/hr EVERY 8 HOURS IVPB 07/13/17 20:00 07/18/17 19:59 07/17/17 14:26 Polyethylene Glycol (Miralax) 17 gm DAILYPRN PRN ORAL Constipation 07/13/17 11:15 08/12/17 11:14 Rifaximin (Xifaxan) 550 mg Q12HR ORAL 07/13/17 21:00 08/15/17 20:59 07/17/17 08:54 Vancomycin HCl (Vanco rx to dose) 1 ea DAILY PRN MISC PER RX PROTOCOL 07/13/17 12:00 08/12/17 11:59 Vancomycin HCl/ Dextrose 250 ml @ 125 mls/hr Q24H IVPB 07/14/17 13:00 07/19/17 12:59 07/16/17 13:09 FOSTER MURILLO Jul 17, 2017 15:29
[2017-07-17 16:00] VITALS: BP 112/67
--- NOTE | 2017-07-17 16:03 | Infectious Diseases Prog Note ---
Assessment/Plan Problems: (1) Sepsis Assessment & Plan: Resolved. Due to pneumonia probably. (2) HCAP (healthcare-associated pneumonia) Assessment & Plan: Finish another 5-day of Zosyn for a 10-day course. Follow-up CXR better. (3) Cirrhosis (4) Hepatic encephalopathy (5) Positive blood culture Assessment & Plan: Most likely contaminant. Taper vancomycin IV. Assessment/Plan Patient has poor IV access and need PICC line for continued IV antibiotics. Given there is no one to give consent I agree it is needed. Subjective ROS Limited/Unobtainable: Yes Allergies: Coded Allergies: No Known Allergies (Unverified , 07/19/16) Subjective No bleeding. Objective Vital Signs Last 24 Hour Vital Signs Date Time Temp Pulse Resp B/P (MAP) Pulse Ox O2 Delivery O2 Flow Rate FiO2 07/17/17 12:00 98.1 72 16 120/78 100 Room Air 07/17/17 08:00 97.3 76 14 133/78 96 Room Air 07/17/17 07:53 110 18 Room Air 21 07/17/17 04:00 96.9 116 20 149/115 95 Room Air 07/17/17 00:02 97.8 89 18 110/58 94 Room Air 07/16/17 20:00 97.9 103 20 106/63 94 Room Air 07/16/17 19:05 71 18 Room Air 21 Height (Feet): 5 Height (Inches): 7.00 Weight (Pounds): 180 General Appearance: no acute distress HEENT: mucous membranes moist Respiratory/Chest: no respiratory distress Cardiovascular: normal peripheral pulses Abdomen: no mass Extremities: no cyanosis Musculoskeletal: atrophy Laboratory Tests Test 07/17/17 05:30 White Blood Count 5.7 K/UL (4.8-10.8) Red Blood Count 3.49 M/UL (4.70-6.10) L Hemoglobin 11.7 G/DL (14.2-18.0) L Hematocrit 33.9 % (42.0-52.0) L Mean Corpuscular Volume 97 FL (80-99) Mean Corpuscular Hemoglobin 33.5 PG (27.0-31.0) H Mean Corpuscular Hemoglobin Concent 34.5 G/DL (32.0-36.0) Red Cell Distribution Width 13.4 % (11.6-14.8) Platelet Count 149 K/UL (150-450) L Mean Platelet Volume 7.0 FL (6.5-10.1) Neutrophils (%) (Auto) 38.9 % (45.0-75.0) L Lymphocytes (%) (Auto) 45.0 % (20.0-45.0) Monocytes (%) (Auto) 14.6 % (1.0-10.0) H Eosinophils (%) (Auto) 0.7 % (0.0-3.0) Basophils (%) (Auto) 0.8 % (0.0-2.0) Sodium Level 143 MMOL/L (136-145) Potassium Level 3.3 MMOL/L (3.5-5.1) L Chloride Level 106 MMOL/L (98-107) Carbon Dioxide Level 30 MMOL/L (21-32) Anion Gap 7 mmol/L (5-15) Blood Urea Nitrogen 7 mg/dL (7-18) Creatinine 0.9 MG/DL (0.55-1.30) Estimat Glomerular Filtration Rate mL/min (>60) Glucose Level 82 MG/DL (74-106) Calcium Level 9.4 MG/DL (8.5-10.1) Current Medications Medications (Trade) Dose Ordered Sig/Zuhair Route PRN Reason Start Time Stop Time Status Last Admin Dose Admin Acetaminophen (Tylenol) 650 mg Q4H PRN ORAL T>100.5 F 07/13/17 11:15 08/12/17 11:14 Albuterol/ Ipratropium (DuoNeb 0.5-3(2.5)mg/3ml) 3 ml Q4H PRN HHN Shortness of Breath 07/13/17 11:15 07/18/17 11:14 Chlorhexidine Gluconate (Shelbi-Hex 2%) 1 applic DAILY@2000 TOPIC 07/17/17 20:00 08/16/17 19:59 Dextrose (Dextrose 50%) STAT PRN IV Hypoglycemia 07/13/17 11:15 08/12/17 11:14 Dextrose/Sodium Chloride 1,000 ml @ 60 mls/hr [id number] IV 07/13/17 20:00 08/12/17 19:59 07/16/17 03:49 Divalproex Sodium (Depakote) 500 mg TID ORAL 07/13/17 14:00 08/12/17 13:59 07/17/17 14:26 Heparin Sodium (Porcine) (Heparin 5000 units/ml) 5,000 units EVERY 12 HOURS SUBQ 07/13/17 21:00 08/12/17 20:59 07/14/17 20:45 Lactulose (Cephulac) 30 gm THREE TIMES A DAY ORAL 07/15/17 18:00 08/14/17 17:59 07/17/17 14:26 Morphine Sulfate (Morphine Sulfate) 2 mg Q4H PRN IVP Severe Pain (Pain Scale 7-10) 07/13/17 11:15 07/20/17 11:14 Ondansetron HCl (Zofran) 4 mg Q6H PRN IVP Nausea & Vomiting 07/13/17 11:15 08/12/17 11:14 Piperacillin Sod/ Tazobactam Sod 3.375 gm/Dextrose 110 ml @ 27.5 mls/hr EVERY 8 HOURS IVPB 07/13/17 20:00 07/18/17 19:59 07/17/17 14:26 Polyethylene Glycol (Miralax) 17 gm DAILYPRN PRN ORAL Constipation 07/13/17 11:15 08/12/17 11:14 Rifaximin (Xifaxan) 550 mg Q12HR ORAL 07/13/17 21:00 08/15/17 20:59 07/17/17 08:54 Vancomycin HCl (Vanco rx to dose) 1 ea DAILY PRN MISC PER RX PROTOCOL 07/13/17 12:00 08/12/17 11:59 Vancomycin HCl/ Dextrose 250 ml @ 125 mls/hr Q24H IVPB 07/14/17 13:00 07/19/17 12:59 07/16/17 13:09 ARLYN REYNOSO Jul 17, 2017 16:03
[2017-07-17] MEDS ORDERED: DEPAKOTE SPRIN125 MG PO (16:54)
[2017-07-17] MEDS ORDERED: DEPAKOTE SPRIN125 M1 ORAL (16:54)
[2017-07-17] MEDS ORDERED: ZOSYN 3.373.375 GM/1 IVPB (16:55)
[2017-07-17] MEDS ORDERED: LACTULOSE10 GM/153 PO (16:55)
[2017-07-17] MEDS ORDERED: HEPARIN SO5000 UNIT2 SUBQ (16:55)
[2017-07-17] MEDS ORDERED: CHLORHEXIDINE118 M1 TP (16:56)
[2017-07-17] MEDS ORDERED: Depakote 125mg Sprinkles ORAL SCH (18:00)
[2017-07-17 20:00] VITALS: BP 118/66
[2017-07-17] MEDS ORDERED: Dyna-Hex 2% Top Sol 2oz TOPIC SCH (20:00)
[2017-07-17] MEDS ORDERED: D5 1/2NS 1000ml IV ONE (20:39)
[2017-07-17] MEDS ORDERED: Tubing IV Secondary IV ONE (20:39)
[2017-07-17] MEDS ORDERED: NS 275ml ONE (20:39)
[2017-07-18] MEDS ORDERED: Piperacillin/Tazobactam 3.375 GM in NS 110 ML IVPB SCH (22:00)
--- NOTE | 2017-07-19 11:41 | Discharge Summary ---
Discharge Summary Hospital Course Date of Admission Jul 13, 2017 at 10:17 Date of Discharge Jul 17, 2017 at 20:40 Admitting Diagnosis PNEUMONIA/RESPIRATORY DISTRESS HPI Aubrey Gaston is a 77 year old male who was admitted on Jul 13, 2017 at 10: 17 for Pneumonia/Respiratory Distress Hospital Course [id number] Discharge Discharge Disposition Patient was discharged to SNF Discharge Diagnoses: Tanika Vazquez NP Jul 19, 2017 11:41
--- NOTE | 2017-07-19 23:16 | Discharge Summary 2 SIG ---
DATE OF ADMISSION: 07/13/2017 DATE OF DISCHARGE: 07/17/2017 CONSULTANTS: 1. Chi Gibson M.D. 2. Christina Comsb M.D. 3. Lana Green M.D. 4. Kain Haq M.D. BRIEF HOSPITAL COURSE: The patient is a 77-year-old male from [facility], who presented with increased shortness of breath and lethargy. On evaluation at ED, blood work showed leukocytosis. O2 saturation was 94% to 100% on room air and was in mild/moderate respiratory distress. Chest x-ray showed basilar atelectasis. He has past medical history of advanced liver disease with cirrhosis, encephalopathy, and COPD. He was febrile at ED, temperature of 100. He was started on vancomycin and cefepime was switched to Zosyn. He was placed on seizure precautions and was continued on Depakote. Valproic acid was 87. He presented with hypokalemia, potassium level of 3.1 and hyponatremia, sodium level of 130. He was started on IV hydration with normal saline and magnesium was replaced. The patient had gram-positive cocci out of 1 bottle in blood culture. Influenza A and B were both negative. Fever resolved after switching antibiotic to Zosyn. Vancomycin was tapered as positive blood culture was most likely contaminant. He had poor IV access and needed PICC line for continued IV antibiotics. PICC was inserted to the left upper extremity and he was eventually discharged back to care home to continue five more days of IV Zosyn. FINAL DISPOSITION: The patient was discharged back to [facility]. DISCHARGE MEDICATIONS: Refer to medication list. FINAL DIAGNOSES: 1. Sepsis due to pneumonia. 2. Healthcare-associated pneumonia. 3. Hepatic encephalopathy. 4. Liver cirrhosis. 5. Gastroesophageal reflux disease. 6. Hyponatremia. 7. Hypokalemia. 8. Hypomagnesemia. 9. Dehydration. 10. Status post craniotomy. 11. Anemia. 12. Seizure disorder. 13. Sacral deep tissue injury, present on admission. Farrukh Coburn D.O. I have been assigned to dictate discharge summary on this account and I was not involved in the patient's management. Tanika Vazquez N.P. DR: Fidencio JOB#: [id number] CC: MYA
--- NOTE | 2017-07-24 08:38 | Cardiology Report ---
APPROVED REPORT EKG Measurement Heart [id number] CO 160P45 [id number] Normal sinus rhythm Right bundle branch block Abnormal ECG
--- NOTE | 2017-07-27 23:15 | Consultation ---
DATE OF CONSULTATION: INFECTIOUS DISEASE CONSULTATION CONSULTING PHYSICIAN: Christina Combs M.D. REQUESTING PHYSICIAN: Farrukh Coburn D.O. REASON FOR CONSULTATION: Healthcare-acquired pneumonia, sepsis, and fever. Recommendation for antibiotics therapy in a cirrhotic patient. HISTORY OF PRESENT ILLNESS: The patient is a 77-year-old male with past medical history of advanced liver cirrhosis disease, encephalopathy, and peptic ulcer, was sent from senior living to [facility] emergency room for cough and fever for two days. The patient also had shortness of breath. He was found hypoxemic and febrile, so he was sent for further evaluation and management. The patient had significant history of chronic obstructive pulmonary disease, hep C, cirrhosis, and coronary artery disease with dementia and poor historian and cannot provide any history. History was mainly obtained from the medical record. The patient was saturating 98% on 2 liter at the emergency room with temperature of 98.2 degrees. Chest x-ray showed evidence of pneumonia and possible chronic obstructive pulmonary disease exacerbation. The patient was started on IV antibiotics and I was consulted by the primary provider for antibiotics choice and further management. PAST MEDICAL HISTORY: Significant for coronary artery disease, hypertension, anemia, chronic obstructive pulmonary disease, gastroesophageal reflux disease, advanced liver disease with encephalopathy, peptic ulcer disease, and seizure. PAST SURGICAL HISTORY: Unable to obtain at this point. MEDICATIONS: The patient received intravenous antibiotics. For the rest of his medications, please refer to MAR. ALLERGIES: No known drug allergy. SOCIAL HISTORY: He lives at senior living. No recent drugs, tobacco, or alcohol. FAMILY HISTORY: Unable to obtain. REVIEW OF SYSTEMS: Unable to obtain. The patient is a poor historian. PHYSICAL EXAMINATION: VITAL SIGNS: Temperature 98.2 degrees, pulse 94, respirations 20, blood pressure 117/75, and saturation 98% on 2 liter nasal cannula. GENERAL: An elderly male, obese, lying in bed, alert, and not in distress. Austrian speaker. HEENT: Normocephalic and atraumatic. Pupils are reactive to light. Moist oral mucosa. No exudate. NECK: Supple. No lymphadenopathy. CARDIOVASCULAR: Regular rate and rhythm. No murmur. No gallop. LUNGS: Diminished breathing sounds at the bases with crackles. No wheezing. ABDOMEN: Soft, obese, nontender, and nondistended. Positive bowel sounds. No hepatosplenomegaly. No ascites. EXTREMITIES: No edema. No cyanosis. LABORATORY DATA: Labs showed white count of 11,000, hemoglobin of 10.7, and platelet count of 207,000. BUN of 9 and creatinine of 0.6. Urinalysis was negative for leukocyte esterase, negative for nitrite, and negative for WBC. IMAGING: Chest x-ray showed bibasilar atelectases. ASSESSMENT AND RECOMMENDATION: 1. Healthcare-acquired pneumonia. We will send sputum culture and screen for influenza and start vancomycin with cefepime empiric treatment pending culture results. 2. Sepsis due to the above. Continue wide-spectrum antibiotics therapy pending culture. 3. Cirrhosis. Continue supportive care. Recommend GI consult. Thank you for the consultation. ID will continue to follow. Christina Combs M.D. DR: AKIRA JOB#: [id number] CC:
--- NOTE | 2017-07-28 02:00 | Consultation ---
DATE OF CONSULTATION: 07/27/2017 NOTE: INCOMPLETE DICTATION INFECTIOUS DISEASE CONSULTATION CONSULTING PHYSICIAN: Christina Combs M.D. REQUESTING PHYSICIAN: Farrukh Coburn D.O. REASON FOR CONSULTATION: Healthcare-acquired pneumonia, sepsis, and fever. Recommendation for antibiotics therapy in a cirrhotic patient. HISTORY OF PRESENT ILLNESS: The patient is a 77-year-old male with past medical history of advanced liver cirrhosis disease, encephalopathy, and peptic ulcer disease. Christina Combs M.D. DR: AKIRA JOB#: [id number] CC:
== END 2017-07-17 20:40 | DRG 871 ==
LOC: EDBD 09:14 → EMR 09:37 → EDBEDREQ 09:52 → 4E 10:17 → EDBEDREQ 10:35 → EDBEDREQSVC 12:11 → EDBEDREQ 12:11 → 4E 15:57 → UNDODISIN 20:45
PROC: B548ZZA Ultrasonography of Superior Vena Cava, Guidance (ICD-10-PCS; principal; 2017-07-17)
PROC: 02HV33Z Insertion of Infusion Device into Superior Vena Cava, Percutaneous Approach (ICD-10-PCS; principal; 2017-07-17)
DX: A41.9 Sepsis, unspecified organism (principal); J18.9 Pneumonia, unspecified organism; E46 Unspecified protein-calorie malnutrition; G82.20 Paraplegia, unspecified; K72.90 Hepatic failure, unspecified without coma; G93.89 Other specified disorders of brain; E87.1 Hypo-osmolality and hyponatremia; D64.9 Anemia, unspecified; K27.9 Peptic ulcer, site unspecified, unspecified as acute or chronic, without hemorrhage or perforation; S30.0XXA Contusion of lower back and pelvis, initial encounter; K74.60 Unspecified cirrhosis of liver; E86.0 Dehydration; Y95 Nosocomial condition; K21.9 Gastro-esophageal reflux disease without esophagitis; E83.42 Hypomagnesemia; E87.6 Hypokalemia; Z68.28 Body mass index [BMI] 28.0-28.9, adult; X58.XXXA Exposure to other specified factors, initial encounter; Y92.9 Unspecified place or not applicable
CPT/HCPCS: 36415; 36569; 71010; 74230; 76937; 80048; 80053; 80164; 80202; 81001; 82043; 82044; 82140; 82550; 82553; 82570; 82607; 83605; 83735; 84300; 84484; 85025; 86710; 87040; 87070; 87081; 87181; 87205; 89050; 92610; 93005; 94664; 97803; 99285